=== PATIENT | female | born 1950 | race Caucasian/White ===

== ENCOUNTER → 2017-12-23 11:37 | Outpatient (CLI) | payer MEDICARE, OTHER, SELFPAY ==
[2017-12-23 12:51] LABS: Hemoglobin A1c 7.9 % (4.2-6.3)
[2017-12-23 13:34] LABS: Anion Gap 6 (5-15); BUN 14 mg/dL (7-18); BUN/Creat Ratio 17.3 RATIO (10-20); Calcium,Total 9.7 mg/dL (8.5-10.1); Chloride 104 mmol/L (98-107); Cholesterol 135 mg/dL (200); Creatinine, Serum 0.81 mg/dL (0.55-1.02); EST Glomerular Filtration Rate 75 mL/min (>60); Est Glom Filt Rate - Afr Amer 91 mL/min (>60); Glucose 165 mg/dL (74-106); High Density Lipoprotein 60 mg/dL; Potassium 4.3 mmol/L (3.5-5.1); Sodium Level 137 mmol/L (136-145); Triglycerides 136 mg/dL; Very Low Density Lipoprotein 27 mg/dL (5-40)
== END ==
PROVIDERS: Family Provider Family Medicine; PCP Family Medicine; Visit Provider Family Medicine
DX: E11.9 Type 2 diabetes mellitus without complications (principal); E78.00 Pure hypercholesterolemia, unspecified
CPT/HCPCS: 36415; 80048; 80061; 83036

== ENCOUNTER → 2018-08-09 10:31 | Outpatient (CLI) | payer MEDICARE, OTHER, SELFPAY ==
[2018-08-09 12:04] LABS: Hemoglobin A1c 7.8 % (4.2-6.3)
[2018-08-09 12:07] LABS: Anion Gap 10 (5-15); BUN 16 mg/dL (7-18); BUN/Creat Ratio 21.4 RATIO (10-20); Calcium,Total 9.5 mg/dL (8.5-10.1); Chloride 104 mmol/L (98-107); Cholesterol 143 mg/dL (200); Creatinine, Serum 0.75 mg/dL (0.55-1.02); EST Glomerular Filtration Rate 83 mL/min (>60); Est Glom Filt Rate - Afr Amer 100 mL/min (>60); Glucose 170 mg/dL (74-106); High Density Lipoprotein 61 mg/dL; Potassium 4.3 mmol/L (3.5-5.1); Sodium Level 138 mmol/L (136-145); Triglycerides 169 mg/dL; Very Low Density Lipoprotein 34 mg/dL (5-40)
--- OUTSIDE RECORDS SUMMARY | 2018-10-04 19:04 | XMS RPT_ITS ---
:1950 Author Organization OHIP Care Team Providers Name Role Phone Lashell Shafer Attending Unavailable Shafer, Lashell Referring Unavailable Shafer, Lashell Primary Care Unavailable Lashell Shafer Attending Unavailable Shafer, Lashell Referring Unavailable Shafer, Lashell Primary Care Unavailable PROBLEMS PROBLEMS DATE TYPE CONDITION / CODE ATTENDING STATUS SOURCE Unknown E11.9 - Type 2 diabetes Hollis Lashell Denney 8 mellitus without Community complications / Hospital E11.9(ICD-10) Repository Unknown E78.00 - Pure Shafer Lashell Active [place] 8 hypercholesterolemia, Community unspecified / Hospital E78.00(ICD-10) Repository Unknown 272.0 - Pure Lashell Shafer 8 hypercholesterolemia / Community 272.0(ICD-9) Hospital Repository Unknown 250.00 - Diabetes Lashell Shafer Active [place] 8 mellitus without mention Community of complication, type II Hospital or unspecified type, not Repository stated as uncontrolled / 250.00(ICD-9) PROCEDURES PROCEDURES No Procedure Records FoundRESULTS RESULTS HEMOGLOBIN A1C Collected: 08/09/2018 Status: F Source: [place] 10:39 AM ON LICENSE OF [facility] REPOSITORY Order Comment: Order Date: 05/01/18 Order Info: 4548-4 - A1C TYPE CODE TESTS RESULT OUT OF RANGE REFERENCE UNITS LAB L501.9985 4.2-6.3 % High HGB A1C 7.8 Performed By: #### L501.9985, L500.2500, L500.4100 #### [facility] [address] [place], [place], [id number] BASIC METABOLIC Collected: 08/09/2018 Status: F Source: [place] PROFILE (BMP) 10:39 AM [facility] REPOSITORY Order Comment: Order Date: 05/01/18 Order Info: 0667-1 - BMP Order Info: 74499-1 - LIPID TYPE CODE TESTS RESULT OUT OF RANGE REFERENCE UNITS LAB L501.0100 74-106 mg/dL High GLU 170 Result Comment: Fasting Glucose result greater than or equal to 126 mg/dL suggests DIABETES MELLITUS per A.D.A. criteria. Please note revised GLUCOSE reference range effective 2017. LAB L501.1000 7-18 mg/dL Normal BUN 16 LAB L501.1100 0.55-1.02 mg/dL Normal CREAT,SERUM 0.75 Result Comment: The validity of the calculated GFR AND GFRAA in patients over 70 years has not been determined. Clinical correlation is essential. LAB L501.1110 >60 mL/min Normal EST GFR 83 Result Comment: Non- GFR Calc LAB L501.1115 >60 mL/min Normal EST GFR - AA 100 Result Comment: GFR Calc LAB L501.1300 10-20 RATIO High BUN/CRE 21.4 LAB L501.2200 8.5-10.1 mg/dL CA Normal 9.5 LAB L501.5300 136-145 mmol/L NA Normal 138 LAB L501.5600 3.5-5.1 mmol/L K Normal 4.3 LAB L501.5900 98-107 mmol/L CL Normal 104 LAB L501.6100 21.0-32.0 mmol/L Normal CO2 24.0 LAB L501.6200 5-15 Normal GAP 10 Performed By: #### L501.9985, L500.2500, L500.4100 #### [facility] [address] [place], [place], [address] LIPID PROFILE Collected: 08/09/2018 Status: F Source: [place] 10:39 AM [facility] REPOSITORY Order Comment: Order Date: 05/01/18 Order Info: 0667-1 - BMP Order Info: 03533-0 - LIPID TYPE CODE TESTS RESULT OUT OF RANGE REFERENCE UNITS LAB L501.4900 200 mg/dL Normal CHOL 143 Result Comment: <200 mg/dL Desirable 200-240 mg/dL Borderline >240 mg/dL High Risk LAB L501.5000 mg/dL Normal TRIG 169 Result Comment: The drugs N-Acetylcysteine and Metamizole may falsely depress this assay. Serum Triglycerides Reference Interval Normal <150 mg/dL Borderline high 150 - 199 mg/dL High 200 - 499 mg/dL Very High > or = 500 mg/dL LAB L501.6400 mg/dL Normal HDL 61 Result Comment: The drugs N-Acetylcysteine and Metamizole may falsely depress this assay. Reference Range HDL <40 mg/dL Low HDL Cholesterol HDL >or= 60 mg/dL High HDL Cholesterol LAB L501.6500 0-130 mg/dL Normal LDL 48 LAB L501.6600 5-40 mg/dL Normal VLDL 34 Performed By: #### L501.9985, L500.2500, L500.4100 #### [facility] [address] [facility] [place], [address] HEMOGLOBIN A1C Collected: 12/23/2017 Status: F Source: [place] 11:45 AM [facility] REPOSITORY Order Comment: Order Date: 09/20/17 Order Info: 4548-4 - A1C TYPE CODE TESTS RESULT OUT OF RANGE REFERENCE UNITS LAB L501.9985 4.2-6.3 % High HGB A1C 7.9 Performed By: #### L501.9985, L500.2500, L500.4100 #### [facility] [address] [place], [address] BASIC METABOLIC Collected: 12/23/2017 Status: F Source: [place] PROFILE (BMP) 11:45 AM [facility] REPOSITORY Order Comment: Order Date: 09/20/17 Order Info: 0667-1 - BMP Order Info: 58887-1 - LIPID TYPE CODE TESTS RESULT OUT OF RANGE REFERENCE UNITS LAB L501.0100 74-106 mg/dL High GLU 165 Result Comment: Fasting Glucose result greater than or equal to 126 mg/dL suggests DIABETES MELLITUS per A.D.A. criteria. Please note revised GLUCOSE reference range effective 2017. LAB L501.1000 7-18 mg/dL Normal BUN 14 LAB L501.1100 0.55-1.02 mg/dL Normal CREAT,SERUM 0.81 Result Comment: The validity of the calculated GFR AND GFRAA in patients over 70 years has not been determined. Clinical correlation is essential. LAB L501.1110 >60 mL/min Normal EST GFR 75 Result Comment: Non- GFR Calc LAB L501.1115 >60 mL/min Normal EST GFR - AA 91 Result Comment: GFR Calc LAB L501.1300 10-20 RATIO Normal BUN/CRE 17.3 LAB L501.2200 8.5-10.1 mg/dL CA Normal 9.7 LAB L501.5300 136-145 mmol/L NA Normal 137 LAB L501.5600 3.5-5.1 mmol/L K Normal 4.3 LAB L501.5900 98-107 mmol/L CL Normal 104 LAB L501.6100 21.0-32.0 mmol/L Normal CO2 27.0 LAB L501.6200 5-15 Normal GAP 6 Performed By: #### L501.9985, L500.2500, L500.4100 #### [facility] [address] [place], [place], [address] LIPID PROFILE Collected: 12/23/2017 Status: F Source: [place] 11:45 AM [facility] REPOSITORY Order Comment: Order Date: 09/20/17 Order Info: 0667-1 - BMP Order Info: 97219-5 - LIPID TYPE CODE TESTS RESULT OUT OF RANGE REFERENCE UNITS LAB L501.4900 200 mg/dL Normal CHOL 135 Result Comment: <200 mg/dL Desirable 200-240 mg/dL Borderline >240 mg/dL High Risk LAB L501.5000 mg/dL Normal TRIG 136 Result Comment: The drugs N-Acetylcysteine and Metamizole may falsely depress this assay. Serum Triglycerides Reference Interval Normal <150 mg/dL Borderline high 150 - 199 mg/dL High 200 - 499 mg/dL Very High > or = 500 mg/dL LAB L501.6400 mg/dL Normal HDL 60 Result Comment: The drugs N-Acetylcysteine and Metamizole may falsely depress this assay. Reference Range HDL <40 mg/dL Low HDL Cholesterol HDL >or= 60 mg/dL High HDL Cholesterol LAB L501.6500 0-130 mg/dL Normal LDL 48 LAB L501.6600 5-40 mg/dL Normal VLDL 27 Performed By: #### L501.9985, L500.2500, L500.4100 #### [facility] [address] [place], [address] PROGRESS Observed: 12/05/2017 Status: COMPLETED Source: [place] 10:36 AM [facility] REPOSITORY HNO ID: [id number] Author: Donna Arellano Horser Up Service: (none) Author Type: (none) Type: Progress Notes Filed: 12/05/2017 10:38 AM Note Text: I spoke with Pamela and she states she Loved Dr. crowder as a physician but she decided to change doctors because she was frustrated with the call center and having to wait so long when trying to get in with Dr. Crowder. She wanted you to know that she really liked you a lot and it's nothing against you. PROGRESS Observed: 12/02/2017 Status: COMPLETED Source: [place] 1:[address] [facility] REPOSITORY HNO ID: [id number] Author: Donna Arellano Horser Up Service: (none) Author Type: (none) Type: Progress Notes Filed: 12/05/2017 10:38 AM Note Text: Phone rang several times - no answer - unable to leave a message. PROGRESS Observed: 11/30/2017 Status: COMPLETED Source: [place] 1:[address] [facility] REPOSITORY HNO ID: [id number] Author: Donna Arellano Horser Up Service: (none) Author Type: (none) Type: Progress Notes Filed: 12/05/2017 10:38 AM Note Text: Phone rang several times - unable to leave a message - will try back later. PROGRESS Observed: 11/30/2017 Status: COMPLETED Source: [place] 1:03 PM [facility] REPOSITORY HNO ID: [id number] Author: Donna Arellano Horser Up Service: (none) Author Type: (none) Type: Progress Notes Filed: 12/05/2017 10:38 AM Note Text: [facility] CARE GAP REGISTRY DOCUMENTATION (OUTSIDE TEAMLET) Provider Action/FYI: Please file labs Last labs were done at [facility] in February/2017 PSR Action/FYI: Patient identified by name and date of . Last BP/Labs: Blood Pressure: Last 3 Encounter BP Readings: Date: BP: 03/14/2017 149/84 03/01/2017 124/74 02/25/2017 120/60 Lipids: No results found for: CHOL No results found for: HDL No results found for: LDL No results found for: TG HGB A1C: Lab Results Component Value Date HBA1C 8.4 02/14/2017 TSH: No results found for: TSH) ? Patient has the following care gap registry disease diagnosis:DM ? HTN ? Patient has the following open care gaps:DM - Need Urine Albumin / NOT checked in last 12 months ? Needs dilated eye exam - HM overdue ? Foot exam ? HTN - Last BP NOT under 140/90 ? Last office visit: 03/14/2017 ? Future office visit:Follow-up DM/HTN next available with Provider PCP or AUTOMOBILE REPAIR SERVICE ESTIMATOR with labs prior Health Maintenance Due: TETANUS due on 1963 URINE ALBUMIN CREATININE RATIO due on 1968 - order pending DIABETIC FOOT EXAM due on 1968 HEPATITIS C SCREENING due on 1996 COLORECTAL CANCER SCREENING,SEE MODIFIER due on 2002 MAMMOGRAM due on 09/16/2014 - order pending BONE DENSITY due on 2017 ADULT PREVNAR-13 due on 2017 PNEUMOVAX AGE 65 AND OVER WITH 5YR LOOKBACK(1) due on 2017 INFLUENZA(1) due on 05/13/2017 HBA1C due on 08/16/2017 - order pending DILATED RETINAL EXAM due on 12/22/2017 Donna Arellano [facility] CNPTOUTREACH Observed: 11/30/2017 Status: COMPLETED Source: [place] 12:[address] [facility] REPOSITORY Patient Outreach (INTMWS) PAMELA WALSH ([id number]) 1950 F Date Time Provider Department 11/30/17 DONNA ARELLANO) INTMWS During your visit today, we recorded the following information about you: Donna Arellano [facility] 12/05/2017 10:38 AM Signed [facility] CARE GAP REGISTRY DOCUMENTATION (OUTSIDE TEAMLET) Provider Action/FYI: Please file labs Last labs were done at [facility] in February/2017 PSR Action/FYI: Patient identified by name and date of . Last BP/Labs: Blood Pressure: Last 3 Encounter BP Readings: Date: BP: 03/14/2017 149/84 03/01/2017 124/74 02/25/2017 120/60 Lipids: No results found for: CHOL No results found for: HDL No results found for: LDL No results found for: TG HGB A1C: Lab Results Component Value Date HBA1C 8.4 02/14/2017 TSH: No results found for: TSH) ? Patient has the following care gap registry disease diagnosis:DM ? HTN ? Patient has the following open care gaps:DM - Need Urine Albumin / NOT checked in last 12 months ? Needs dilated eye exam - HM overdue ? Foot exam ? HTN - Last BP NOT under 140/90 ? Last office visit: 03/14/2017 ? Future office visit:Follow-up DM/HTN next available with Provider PCP or AUTOMOBILE REPAIR SERVICE ESTIMATOR with labs prior Health Maintenance Due: TETANUS due on 1963 URINE ALBUMIN CREATININE RATIO due on 1968 - order pending DIABETIC FOOT EXAM due on 1968 HEPATITIS C SCREENING due on 1996 COLORECTAL CANCER SCREENING,SEE MODIFIER due on 2002 MAMMOGRAM due on 09/16/2014 - order pending BONE DENSITY due on 2017 ADULT PREVNAR-13 due on 2017 PNEUMOVAX AGE 65 AND OVER WITH 5YR LOOKBACK(1) due on 2017 INFLUENZA(1) due on 05/13/2017 HBA1C due on 08/16/2017 - order pending DILATED RETINAL EXAM due on 12/22/2017 Donna Arellano [facility] Donna Arellano [facility] 12/05/2017 10:38 AM Signed Phone rang several times - unable to leave a message - will try back later. Donna Arellano [facility] 12/05/2017 10:38 AM Signed Phone rang several times - no answer - unable to leave a message. Donna Arellano [facility] 12/05/2017 10:38 AM Signed I spoke with Pamela and she states she Loved Dr. crowder as a physician but she decided to change doctors because she was frustrated with the call center and having to wait so long when trying to get in with Dr. Crowder. She wanted you to know that she really liked you a lot and it's nothing against you. Allergies As of Date: 11/30/2017 Noted Allergy Reaction CAFFEINE 04/19/2016 16 - Unknown Comments: Very sensitive CODEINE 04/19/2016 5 - Intolerance Comments: [place] weird PERCOCET (OXYCODONE-ACETAMINOPHEN)04/19/2016 14 - Other: See Comments Comments: [place] weird ZITHROMAX (AZITHROMYCIN) 04/19/2016 12 - Shortness of Breath Date Reviewed: 03/01/2017 Reviewed by: Frannie Schilling Ma - Fully Assessed Reason for Visit: PHMA/Care Gap Outreach [2411] Primary Visit Diagnosis:Screening mammogram, encounter for [Z12.31] Other Visit Diagnoses:Type 2 diabetes mellitus without complication, without long-term current use of insulin (HCC) [E11.9] Mixed hyperlipidemia [E78.2] Essential hypertension [I10] Order(s):MARINE SCREENING [[id number]] Order #: [id number] FUTURE HGB A1C [ICAWD5U] Order #: [id number] FUTURE ALBUMIN/CREAT RATIO RND UR [SQUACR] Order #: [id number] FUTURE BASIC METABOLIC PNL [SQBMP] Order #: [id number] FUTURE LIPID PANEL BASIC [SQLIPB] Order #: [id number] FUTURE Prescriptions as of 11/30/2017 Sig: GLIPIZIDE ER 10 MG TABLET, EX* Take 1 tablet by mouth twice * METFORMIN 1,000 MG TABLET Take 1 tablet by mouth twice * ATORVASTATIN 40 MG TABLET Take 1 tablet by mouth daily * LISINOPRIL 2.5 MG TABLET Take 1 tablet by mouth daily * CINNAMON BARK 500 MG CAPSULE Take by mouth once daily. COENZYME Q10 10 MG CAPSULE Take by mouth once daily. VALERIAN ORAL Take 150 mg by mouth. Prn for* VITAMIN B COMPLEX ORAL Take by mouth once daily. ASCORBIC ACID (VITAMIN C) 500* Take 500 mg by mouth once terry* BIOTIN 1 MG TABLET Take 1 tablet by mouth. COMPOUNDED PRESCRIPTION Lab draw: HgA1C, lipids, CMP* BUSPIRONE 15 MG TABLET Take 15 mg by mouth twice terry* BUPROPION XL 300 MG 24 HR TAB Take 300 mg by mouth once terry* LIOTHYRONINE 5 MCG TABLET Take 5 mcg by mouth once latanya* XANAX ORAL Take by mouth. PRN Problem List As Of Date 11/30/2017 Noted Resolved Type 2 diabetes mellitus without complication, *INVALID FOR* Mixed hyperlipidemia [E78.2] INVALID FOR* Depression [F32.9] Panic disorder [F41.0] Non morbid obesity due to excess calories [E66.*INVALID FOR* Essential hypertension [I10] INVALID FOR* Encounter Status:Closed by DONNA ARELLANO CMA on 12/05/17 ALLERGIES ALLERGIES DATE TYPE / CODE NAME / CODE REACTION SEVERITY SOURCE 05/01/2017 Drug pentazocine Nausea Unknown [place] Allergy/416 lactate/[id number] [facility] [id number]([facility] ([facility] ED CT) Repository 05/01/2017 Drug codeine/[id number] Nausea Unknown [place] Allergy/416 (RXNORM) [facility] [id number]([facility] CT) Repository 05/01/2017 Drug azithromycin/F0060 Shortness of Unknown [place] Allergy/416 27282(RXNORM) breath [facility] [id number]([facility] ED CT) Repository ENCOUNTERS ENCOUNTERS ADMIT/DISCHARGE ACCOUNT ADMITTING ENCOUNTER LOCATION SOURCE NUMBER CLASS 08/09/2018 [id number] Ambulatory [place] [facility] ing:LAB Repository 12/23/2017 [id number] Ambulatory [place] [facility] ing:LAB Repository PAYERS PAYERS ENCOUNTER GUARANTOR PAYER SUBSCRIBER SOURCE 08/09/2018 Pamela Walsh133 Primary Pamela GoshenDOB: [place] Mallika Rooney, Insurance:MEDICARE [id number] [id number]: PART A [facility] Number: Repository HP) [id number] Date:2018-08-09 08/09/2018 Secondary Pamelajoseph BrowninghenDOB: [place] Insurance:MEDICAL [id number]: Repository [id number] Date:[id number] [address]JJ: 08/09/2018 Tertiary NOT GIVENUNK [place] Insurance:SELF PAY [facility] Number: Effective Repository Date:2018-08-09 12/23/2017 Pamela Walsh133 Primary Pamela JillianDOB: [place] Mallika Rooney, Insurance:MEDICARE [id number] [id number]: PART A [facility] Number: Repository [place] [id number] Date:2017-12-23 12/23/2017 Secondary Pamela KennyB: [place] Insurance:MEDICAL [id number] Number: Repository [id number] Date:[id number], [place] [address]IM: 12/23/2017 Tertiary NOT GIVENUNK [place] Insurance:SELF PAY [facility] Number: Effective Repository Date:2017-12-23
== END ==
PROVIDERS: Family Provider Family Medicine; PCP Family Medicine; Referring Provider Family Medicine; Visit Provider Family Medicine
DX: E11.9 Type 2 diabetes mellitus without complications (principal); E78.00 Pure hypercholesterolemia, unspecified
CPT/HCPCS: 36415; 80048; 80061; 83036

== ENCOUNTER → 2018-11-22 17:52 | Outpatient (CLI) | payer MEDICARE, OTHER, SELFPAY ==
[2017-05-01 13:50] VITALS: BMI 35.5
== END ==
PROVIDERS: Family Provider Family Medicine; PCP Family Medicine; Referring Provider Nurse Practitioner Family; Visit Provider Nurse Practitioner Family
DX: R30.0 Dysuria (principal)
CPT/HCPCS: 87086; 87088; 87186

== ENCOUNTER → 2019-03-01 | Outpatient (CLI) | payer MEDICARE, OTHER, SELFPAY ==
[2019-03-01 11:30] LABS: Hemoglobin A1c 7.5 % (4.2-6.3)
[2019-03-01 11:51] LABS: Anion Gap 5 (5-15); BUN 12 mg/dL (7-18); BUN/Creat Ratio 17.9 RATIO (10-20); Calcium,Total 9.7 mg/dL (8.5-10.1); Chloride 106 mmol/L (98-107); Cholesterol 145 mg/dL (200); Creatinine, Serum 0.67 mg/dL (0.55-1.02); EST Glomerular Filtration Rate 93 mL/min (>60); Est Glom Filt Rate - Afr Amer 113 mL/min (>60); Free T3 2.3 pg/mL (2.18-3.98); Glucose 165 mg/dL (74-106); High Density Lipoprotein 63 mg/dL; Potassium 4.2 mmol/L (3.5-5.1); Sodium Level 137 mmol/L (136-145); T4 Total, Thyroxin 8.6 ug/dL (4.8-13.9); Thyroid Stim Hormone (TSH) 1.03 uIU/mL (0.358-3.74); Triglycerides 179 mg/dL; Very Low Density Lipoprotein 36 mg/dL (5-40)
== END | disposition home or self-care (01) ==
LOC: LAB 10:33
PROVIDERS: Family Provider Family Medicine; PCP Family Medicine; Referring Provider Family Medicine; Visit Provider Family Medicine
DX: E03.9 Hypothyroidism, unspecified (principal); E11.9 Type 2 diabetes mellitus without complications; E78.00 Pure hypercholesterolemia, unspecified
CPT/HCPCS: 36415; 80048; 80061; 83036; 84436; 84443; 84481

== ENCOUNTER → 2019-11-16 | Outpatient (CLI) | payer MEDICARE, OTHER, SELFPAY ==
[2017-05-01 13:50] VITALS: BMI 35.5
[2019-11-16 14:06] LABS: Anion Gap 4 (5-15); BUN 13 mg/dL (7-18); BUN/Creat Ratio 17.7 RATIO (10-20); Calcium,Total 9.8 mg/dL (8.5-10.1); Chloride 109 mmol/L (98-107); Cholesterol 141 mg/dL (200); Creatinine, Serum 0.73 mg/dL (0.55-1.02); EST Glomerular Filtration Rate 84 mL/min (>60); Est Glom Filt Rate - Afr Amer 102 mL/min (>60); Glucose 183 mg/dL (74-106); High Density Lipoprotein 61 mg/dL; Potassium 4.5 mmol/L (3.5-5.1); Sodium Level 139 mmol/L (136-145); Triglycerides 152 mg/dL; Very Low Density Lipoprotein 30 mg/dL (5-40)
[2019-11-16 14:24] LABS: Hemoglobin A1c 7.8 % (4.2-6.3)
== END | disposition home or self-care (01) ==
LOC: LAB 12:29
PROVIDERS: PCP Family Medicine; Referring Provider Family Medicine; Visit Provider Family Medicine
DX: E11.9 Type 2 diabetes mellitus without complications (principal); E78.00 Pure hypercholesterolemia, unspecified
CPT/HCPCS: 36415; 80048; 80061; 83036

== ENCOUNTER → 2020-08-25 11:01 | Outpatient (CLI) | payer MEDICARE, OTHER, SELFPAY ==
[2017-05-01 13:50] VITALS: BMI 35.5
[2020-08-25 12:02] LABS: ALB/GLOB Ratio 1.1 RATIO (0.9-2.4); AST(SGOT) 15 U/L (15-37); Alanine Aminotransfer ALT/SGPT 23 U/L (13-56); Albumin, Serum 3.5 g/dL (3.2-5.0); Alkaline Phosphatase 101 U/L (45-117); Anion Gap 6 (5-15); BUN 13 mg/dL (7-18); Calcium,Total 9.7 mg/dL (8.5-10.1); Chloride 104 mmol/L (98-107); Cholesterol 144 mg/dL (200); Creatinine, Serum 0.72 mg/dL (0.55-1.02); EST Glomerular Filtration Rate 85 mL/min (>60); Est Glom Filt Rate - Afr Amer 103 mL/min (>60); Globulin 3.2 g/dL (2.2-4.2); Glucose 171 mg/dL (74-106); High Density Lipoprotein 69 mg/dL; Potassium 4.2 mmol/L (3.5-5.1); Protein, Total 6.7 g/dL (6.4-8.2); Sodium Level 136 mmol/L (136-145); Triglycerides 175 mg/dL; Very Low Density Lipoprotein 35 mg/dL (5-40)
[2020-08-25 12:06] LABS: Hemoglobin A1c 7.5 % (3.8-5.6)
== END ==
PROVIDERS: PCP Family Medicine; Referring Provider Family Medicine; Visit Provider Family Medicine
DX: E11.9 Type 2 diabetes mellitus without complications (principal)
CPT/HCPCS: 36415; 80053; 80061; 83036

== ENCOUNTER 2020-11-18 12:01 | Outpatient (RCR) | payer MEDICARE, SELFPAY ==
[2017-05-01 13:50] VITALS: BMI 35.5
[2020-11-18] MEDS: COVID-19 VACC, MRNA(PFIZER)/PF 30 MCG/0.3 ML SYRINGE IM (09:12)
[2020-12-09] MEDS: COVID-19 VACC, MRNA(PFIZER)/PF 30 MCG/0.3 ML SYRINGE IM (09:00)
== END 2021-02-17 23:59 ==
LOC: IMMUN 12:01
PROVIDERS: PCP Family Medicine; Referring Provider Family Medicine; Visit Provider Family Medicine
DX: Z23 Encounter for immunization (principal)
CPT/HCPCS: 0001A; 0002A; 91300

== ENCOUNTER → 2021-02-27 09:49 | Outpatient (CLI) | payer MEDICARE, OTHER, SELFPAY ==
[2017-05-01 13:50] VITALS: BMI 35.5
[2021-02-27 11:35] LABS: Hemoglobin A1c 7.6 % (3.8-5.6)
[2021-02-27 12:13] LABS: ALB/GLOB Ratio 1.1 RATIO (0.9-2.4); AST(SGOT) 14 U/L (15-37); Alanine Aminotransfer ALT/SGPT 23 U/L (13-56); Albumin, Serum 3.7 g/dL (3.2-5.0); Alkaline Phosphatase 108 U/L (45-117); Anion Gap 9 (5-15); BUN 15 mg/dL (7-18); BUN/Creat Ratio 19.4 RATIO (10-20); Calcium,Total 9.7 mg/dL (8.5-10.1); Chloride 102 mmol/L (98-107); Cholesterol 151 mg/dL (200); Creatinine, Serum 0.77 mg/dL (0.55-1.02); EST Glomerular Filtration Rate 79 mL/min (>60); Est Glom Filt Rate - Afr Amer 95 mL/min (>60); Globulin 3.4 g/dL (2.2-4.2); Glucose 205 mg/dL (74-106); High Density Lipoprotein 65 mg/dL; Potassium 4.6 mmol/L (3.5-5.1); Protein, Total 7.1 g/dL (6.4-8.2); Sodium Level 137 mmol/L (136-145); Thyroid Stim Hormone (TSH) 1.14 uIU/mL (0.358-3.74); Triglycerides 143 mg/dL; Very Low Density Lipoprotein 29 mg/dL (5-40)
== END ==
PROVIDERS: PCP Family Medicine; Referring Provider Family Medicine; Visit Provider Family Medicine
DX: E11.65 Type 2 diabetes mellitus with hyperglycemia (principal)
CPT/HCPCS: 36415; 80053; 80061; 83036; 84443

== ENCOUNTER 2021-03-01 10:56 | Emergency (ER) | payer MEDICARE, OTHER, SELFPAY ==
[2021-03-01 10:58] VITALS: BP 166/84; PULSE 120; RESP 17; TEMP 36.1; O2SAT 96; BMI 35.8
--- NOTE | 2021-03-01 11:06 | EX.ED.GENINJ ---
HPI History of Present Illness Chief Complaint: Laceration Informant: patient Narrative Narrative: 70-year-old female using X-Acto knife when she stained a laceration to the dorsum of the right index finger over the DIP joint. She denies any loss of function or sensation. Bleeding controlled with pressure. She is left-handed. Tetanus Immunization: >10 years [facility] Medical History Diabetes mellitus Hypertension Hypothyroidism Home Medications alprazolam [Xanax] 5 mg PO DAILY PRN PRN 05/01/17 [History Last Taken Unknown] atorvastatin 40 mg PO QHS 05/01/17 [History Last Taken Unknown] bupropion HCl 300 mg PO DAILY 05/01/17 [History Last Taken Unknown] buspirone 22.5 mg PO BID 05/01/17 [History Last Taken Unknown] glipizide 10 mg PO BIDAC 05/01/17 [History Last Taken Unknown] liothyronine 5 mcg PO DAILY 05/01/17 [History Last Taken Unknown] lisinopril 2.5 mg PO QHS 05/01/17 [History Last Taken Unknown] metformin 1,000 mg PO BIDCM 05/01/17 [History Last Taken Unknown] Allergy/AdvReac Type Severity Reaction Status Date / Time azithromycin [From Zithromax] Allergy Shortness Verified 03/01/21 10:57 of breath codeine AdvReac Nausea Verified 03/01/21 10:57 pentazocine lactate AdvReac Nausea Verified 03/01/21 10:57 [From Ajay] Surgical History (Updated 03/01/21 @ 11:[address] Neno Burris DO) H/O gastric bypass History of tonsillectomy History of wisdom tooth extraction Social History (Updated 03/01/21 @ 11:[address] Neno Burris DO) Smoking Status: Never smoker substance use type: does not use ROS ROS ED Constitutional Constitutional ED: Denies chills or weight loss Eyes Eyes: Denies change in vision or diplopia ENT ENT ED: Denies ear pain, rhinorrhea or sore throat Cardiovascular Cardiovascular: Denies chest pain, orthopnea, palpitations or racing heartbeat Respiratory/Chest Respiratory/Chest: Denies cough, dyspnea or orthopnea Gastrointestinal Gastrointestinal: Denies abdominal pain, diarrhea, nausea or vomiting Genitourinary Genitourinary ED: Denies dysuria, hematuria or urinary frequency Musculoskeletal Musculoskeletal: Denies arthralgias or myalgias Integumentary Reports other Details: Laceration ; Denies abscess or rash Neurologic Neurologic: Denies headache(s) or weakness Psychiatric Psychiatric: Denies anxiety, depression, suicidal ideation or suicidal thoughts Endocrine Endocrinology: Denies polydipsia, polyphagia or polyuria Allergic/Immunologic Allergic/Immunologic ED: Denies mouth swelling, tongue swelling or urticaria EXAM Physical Exam Const Vital Signs: 03/01/21 10:58 Temperature 96.9 F L Temperature Source Temporal Pulse Rate 120 H Respiratory Rate 17 Blood Pressure 166/84 H Blood Pressure Mean 111 Pulse Ox 96 Oxygen Delivery Method Room Air Positive well nourished and well developed General Appearance ED: well developed HEENT Reports normocephalic, head/scalp atraumatic and moist mucous membranes Eyes PERRL and EOMs intact bilaterally Neck no lymphadenopathy, supple and no JVD Resp normal respiratory effort and clear to auscultation bilaterally Cardio regular rate, regular rhythm and no murmurs GI normal to inspection, nondistended, normoactive bowel sounds and non-tender Palpation: soft Back/Spine no CVA tenderness and normal ROM Extremity Extremity Narrative: There is a 1 cm linear laceration over the dorsum of the right index finger DIP joint. Neurovascular intact. Normal tendon function. General Extremety ED: Negative for edema General Extremity: Negative for edema Neuro oriented x3 and CN's II-XII intact bilaterally Sensorium / Orientation: alert Motor Exam: strength 5/5 throughout Psych mental status grossly normal Mood & Affect: Negative for depressed or tearful Skin no rashes or lesions noted and skin turgor normal MDM MDM MDM Narrative Medical decision making narrative: Wound was locally anesthetized using 1% lidocaine. Was washed with Shur-Clens and explored. It was closed using a total of 3 simple erupted 5-0 Ethilon sutures. Wound was dressed. Wound care discussed with patient. Follow-up in 10 days for suture removal Discharge Plan Triage Chief Complaint: Laceration ED Provider: Neno Burris Dx/Rx/DC Orders Clinical Impression: Finger laceration Instructions: ED Laceration, Hand: All Closures Prescriptions: No Action atorvastatin 40 MG tablet 40 mg PO QHS RF: 0 buspirone 5 MG tablet 22.5 mg PO BID RF: 0 glipizide 10 MG tablet 10 mg PO BIDAC RF: 0 liothyronine 5 MCG tablet 5 mcg PO DAILY RF: 0 metformin 1,000 MG tablet 1,000 mg PO BIDCM RF: 0 alprazolam [Xanax] 2 MG tablet 5 mg PO DAILY PRN PRN (Reason: Anxiety) RF: 0 lisinopril 2.5 MG tablet 2.5 mg PO QHS RF: 0 bupropion HCl 300 MG Tablet.Xl 300 mg PO DAILY RF: 0 Primary Care Provider: Hugo Olivier Referrals: Hugo Olivier MD [Primary Care Provider] - 10 Day for suture removal Disposition Disposition: Home, self care
[2021-03-01] MEDS: Diphth,Pertuss(Acell),Tet Vac 0.5 ML Vial IM (11:19)
[2021-03-01] MEDS: Lidocaine 1% (20 ml mdv) 20 ML Vial INFILT (11:19)
[2021-03-01 11:51] VITALS: PULSE 98; RESP 17; O2SAT 98
== END 2021-03-01 11:52 | disposition home or self-care (01) ==
LOC: ED 11:34
PROVIDERS: Emergency Provider Emergency Medicine; PCP Family Medicine
DX: S61.210A Laceration without foreign body of right index finger without damage to nail, initial encounter (principal); W26.0XXA Contact with knife, initial encounter
CPT/HCPCS: 12001; 90471; 90715; 99283

== ENCOUNTER 2021-03-28 12:14 | Emergency (ER) | payer MEDICARE, OTHER, SELFPAY ==
[2021-03-28 12:16] VITALS: BP 163/94; PULSE 92; RESP 16; TEMP 35.7; BMI 35.7
--- NOTE | 2021-03-28 12:38 | EKG12_ITS ---
Test Reason : CP Blood Pressure : / mmHG Vent. Rate : 068 BPM Atrial Rate : 068 BPM P-R Int : 142 ms QRS Dur : 078 ms QT Int : 372 ms P-R-T Axes : 052 023 052 degrees QTc Int : 395 ms Normal sinus rhythm Normal ECG Confirmed by MILAGRO ZURITA, VI ([id number]), greeting card editor FLIP ROCA ([id number]) on 03/30/2021 2:22:12 PM Referred By: TL Confirmed By:VI HMUPHREY MD
[2021-03-28 12:57] VITALS: BP 155/81; PULSE 83; RESP 16; O2SAT 99
[2021-03-28 13:07] LABS: Absolute Lymphocyte Count 2.72 X10^3/uL (0.83-4.51); Basophil# 0.06 X10^3/uL; Basophil% 0.8 % (0-1); Eosinophil# 0.23 X10^3/uL; Eosinophils% 2.9 % (0-5); Hematocrit 45.1 % (37-47); Hemoglobin 15.1 g/dL (12.0-15.0); Lymphocyte # 2.72 X10^3/ul (0.83-4.51); Lymphocyte % 34.7 % (19-41); Mean Corp Hgb Conc 33.5 g/dL (32-36); Mean Corpuscular Hgb 28.5 pg (27.0-32.0); Mean Corpuscular Volume 85.3 fL (81-99); Mean Platelet Vol. 11.2 fl (6.2-12.0); Monocyte# 0.76 X10^3/uL; Monocyte% 9.7 % (0-10); NRBC Flagged by Analyzer 0 % (0-5); Neutrophil # 4.04 X10^3/uL (2.7-7.7); Neutrophil % 51.6 % (47-70); Platelet Count 338 K/mm3 (150-450); RBC Distribution Width CV 13.1 % (11.6-14.6); RBC Distribution Width SD 40.3 fl (35.1-43.9); Red Blood Count 5.29 M/mm3 (4.2-5.4); White Blood Count 7.8 K/mm3 (4.4-11.0)
--- NOTE | 2021-03-28 13:13 | RAD_ITS ---
HISTORY: chest pain EXAMINATION/TECHNIQUE: XR Chest 1 View: Portable upright AP chest x-ray COMPARISON: None FINDINGS: LINES/DEVICES: None. LUNGS: No consolidation, edema or effusion. No pneumothorax. MEDIASTINUM AND CARDIOVASCULAR STRUCTURES: Cardiac silhouette not enlarged. Central airways and mediastinal contour are unremarkable. BONES AND SOFT TISSUES: No acute bony abnormalities. RAD/Chest 1 View (Portable) IMPRESSION: No radiographic evidence of acute cardiopulmonary disease. at 1426 Reported and signed by: Ritesh Anguiano MD Electronically Signed: Ritesh Anguiano MD at 14:25 EDT Tel , Service support ,
[2021-03-28 13:18] LABS: Anion Gap 9 (5-15); BUN 13 mg/dL (7-18); BUN/Creat Ratio 18.4 RATIO (10-20); Calcium,Total 9.6 mg/dL (8.5-10.1); Chloride 103 mmol/L (98-107); Creatinine, Serum 0.71 mg/dL (0.55-1.02); EST Glomerular Filtration Rate 87 mL/min (>60); Est Glom Filt Rate - Afr Amer 106 mL/min (>60); Estimated Creatinine Clearance 47.78 ml/min; Glucose 131 mg/dL (74-106); Potassium 4.4 mmol/L (3.5-5.1); Sodium Level 138 mmol/L (136-145); Troponin-I HS 4.2 pg/mL (3.0-53.7)
[2021-03-28 15:19] LABS: Troponin-I HS 3.3 pg/mL (3.0-53.7)
--- NOTE | 2021-03-28 15:33 | EDS_ITS ---
HPI History of Present Illness Chief Complaint: Other, Pain/Inj Informant: patient Narrative Narrative: Presents with intermittent twinges left upper chest anterior shoulder for the past couple days. States symptoms are last a few seconds would go away today had multiple episodes. Denies cough dyspnea. Denies pain with arm movement. Denies previous similar symptoms. Stress test and heart cath years ago with no interventions. History of diabetes, hypercholesterolemia. Reports on lisinopril for renal protection. Denies tobacco history. Denies any cardiac history. Reports due to symptoms concerns of heart therefore came to get evaluated. [facility] Medical History Anxiety Depression Diabetes mellitus Hypertension Hypothyroidism Home Medications atorvastatin 40 mg PO QHS 05/01/17 [History Last Taken Unknown] bupropion HCl 300 mg PO DAILY 05/01/17 [History Last Taken Unknown] buspirone 30 mg PO BID 05/01/17 [History Last Taken Unknown] glipizide 10 mg PO BIDAC 05/01/17 [History Last Taken Unknown] liothyronine 5 mcg PO DAILY 05/01/17 [History Last Taken Unknown] lisinopril 2.5 mg PO QHS 05/01/17 [History Last Taken Unknown] metformin 1,000 mg PO BIDCM 05/01/17 [History Last Taken Unknown] ascorbic acid (vitamin C) [Vitamin C] 500 mg PO DAILY 03/28/21 [History Last Taken Unknown] cholecalciferol (vitamin D3) [Vitamin D3] 25 mcg PO DAILY 03/28/21 [History Last Taken Unknown] cinnamon bark [Cinnamon] 500 mg PO DAILY 03/28/21 [History Last Taken Unknown] coenzyme Q10 [Co Q-10] 50 mg PO DAILY 03/28/21 [History Last Taken Unknown] fluoxetine 40 mg PO DAILY 03/28/21 [History Last Taken Unknown] Allergy/AdvReac Type Severity Reaction Status Date / Time azithromycin [From Zithromax] Allergy Shortness Verified 03/28/21 12:18 of breath codeine AdvReac Nausea Verified 03/28/21 12:18 pentazocine lactate AdvReac Nausea Verified 03/28/21 12:18 [From Ajay] Surgical History H/O gastric bypass History of tonsillectomy History of wisdom tooth extraction Social History Smoking Status: Former smoker substance use type: does not use ROS ROS ED Constitutional Constitutional ED: Denies chills, fever(s) or sweats Eyes Eyes: Denies change in vision ENT ENT ED: Denies dysphagia or sore throat Cardiovascular Cardiovascular: Reports chest pain; Denies leg edema, palpitations or racing heartbeat Respiratory/Chest Respiratory/Chest: Denies cough, dyspnea or dyspnea on exertion Gastrointestinal Gastrointestinal: Denies abdominal pain, diarrhea, nausea or vomiting Genitourinary Genitourinary ED: Denies dysuria, hematuria or urinary frequency Musculoskeletal Musculoskeletal: Denies back pain, extremity pain or neck pain Integumentary Denies rash or wounds Neurologic Neurologic: Denies headache(s), paresthesias or weakness EXAM Physical Exam Const Vital Signs: 03/28/21 12:16 03/28/21 12:51 03/28/21 12:57 Temperature 96.2 F L Temperature Source Temporal Pulse Rate 92 83 Respiratory Rate 16 16 Respiratory Effort Respiratory Pattern Blood Pressure 163/94 H 155/81 H Blood Pressure Mean 117 105 Pulse Ox 99 Oxygen Delivery Method Room Air Room Air 03/28/21 13:06 Temperature Temperature Source Pulse Rate Respiratory Rate Respiratory Effort Normal Non-Labored Respiratory Pattern Normal Blood Pressure Blood Pressure Mean Pulse Ox Oxygen Delivery Method Positive well nourished and well developed General Appearance ED: well developed and NAD HEENT Reports moist mucous membranes normocephalic and atraumatic Eyes PERRL, EOMs intact bilaterally and conjunctivae normal General Eye ED: Yes normal appearance of both eyes Neck no lymphadenopathy and supple General: Negative for tenderness Chest Wall Chest: Negative for tenderness Resp normal respiratory effort and normal air movement Effort and Inspection: symmetric chest movement; Negative for respiratory distress Cardio regular rate, regular rhythm and no murmurs Peripheral Pulses: pulses 2+ throughout GI normal to inspection, nondistended, normoactive bowel sounds and non-tender Palpation: Negative for guarding or rebound tenderness present Back/Spine no CVA tenderness and no thoracic nor lumbar tenderness Extremity normal to inspection General Extremety ED: Negative for edema or tenderness General Extremity: Negative for edema Neuro oriented x3 and no sensory deficits noted Sensorium / Orientation: awake and alert Skin no rashes or lesions noted and no wounds MDM MDM MDM Narrative Medical decision making narrative: Patient asymptomatic during my evaluation. EKG was normal. Cardiac work-up with 2 high sensitive troponins were negative. She had intermittent short acting twinges in the ED. Her chest x-ray was negative. Patient's heart score is a 4. However with negative work-up with high sensitive troponins, less likely cardiac in nature. Discussed with patient follow-up with her PCP for further testing as an outpatient. Strict return precautions. All questions were answered. Lab Data Attestation: I reviewed the patient's lab results. Labs: Laboratory Results - last 24 hr 03/28/21 03/28/21 03/28/21 12:45 12:45 14:45 WBC 7.8 RBC 5.29 Hgb 15.1 H Hct 45.1 MCV 85.3 MCH 28.5 MCHC 33.5 RDW Std Deviation 40.3 RDW Coeff of Calli 13.1 Plt Count 338 MPV 11.2 Immature Gran % (Auto) 0.300 Neut % (Auto) 51.6 Lymph % (Auto) 34.7 Kershaw % (Auto) 9.7 Eos % (Auto) 2.9 Baso % (Auto) 0.8 Absolute Neuts (auto) 4.0 Absolute Lymphs (auto) 2.72 Nucleated RBC % 0 Sodium 138 Potassium 4.4 Chloride 103 Carbon Dioxide 26.0 Anion Gap 9 BUN 13 Creatinine 0.71 Estim Creat Clear Calc 47.78 Est GFR (MDRD) Af Amer 106 Est GFR (MDRD) Non-Af 87 BUN/Creatinine Ratio 18.4 Glucose 131 H Calcium 9.6 Troponin I High Sens 4.2 3.3 Radiography Chest X-Ray - ED: 1 View, Read by ED Physician and Read by Radiologist Diagnostic Testing: Radiology Impression Chest X-Ray 03/28/21 13:13 IMPRESSION: No radiographic evidence of acute cardiopulmonary disease. at 1426 Reported and signed by: Ritesh Anguiano MD Electronically Signed: Ritesh Anguiano MD at 14:25 EDT Tel , Service support , EKG Initial EKG: Attestation: I personally reviewed and interpreted this EKG as follows: Comments: Sinus rate of 68, no ST or T wave changes. Discharge Plan Triage Chief Complaint: Other, Pain/Inj ED Provider: Robert Tanner Dx/Rx/DC Orders Clinical Impression: Atypical chest pain Instructions: ED Chest Pain, Uncertain Cause Prescriptions: No Action atorvastatin 40 MG tablet 40 mg PO QHS RF: 0 buspirone 5 MG tablet 30 mg PO BID RF: 0 glipizide 10 MG tablet 10 mg PO BIDAC RF: 0 liothyronine 5 MCG tablet 5 mcg PO DAILY RF: 0 metformin 1,000 MG tablet 1,000 mg PO BIDCM RF: 0 lisinopril 2.5 MG tablet 2.5 mg PO QHS RF: 0 bupropion HCl 300 MG tablet extended release 24 hr 300 mg PO DAILY RF: 0 fluoxetine 40 mg Capsule 40 mg PO DAILY RF: 0 coenzyme Q10 [Co Q-10] 50 mg Capsule 50 mg PO DAILY RF: 0 ascorbic acid (vitamin C) [Vitamin C] 500 mg Tablet 500 mg PO DAILY RF: 0 cinnamon bark [Cinnamon] 500 mg Capsule 500 mg PO DAILY RF: 0 cholecalciferol (vitamin D3) [Vitamin D3] 25 mcg (1,000 unit) Tablet,Chewable 25 mcg PO DAILY RF: 0 Primary Care Provider: Hugo Olivier Referrals: Hugo Olivier MD [Primary Care Provider] - 3-5 Days Disposition Disposition: Home, Self Care
[2021-03-28 15:53] VITALS: BP 140/87; PULSE 88; RESP 20; O2SAT 96
== END 2021-03-28 15:55 | disposition home or self-care (01) ==
PROVIDERS: Emergency Provider Emergency Medicine; PCP Family Medicine
DX: R07.89 Other chest pain (principal); E11.9 Type 2 diabetes mellitus without complications; E78.00 Pure hypercholesterolemia, unspecified; F41.9 Anxiety disorder, unspecified; F32.9 Major depressive disorder, single episode, unspecified; E03.9 Hypothyroidism, unspecified; I10 Essential (primary) hypertension; Z79.84 Long term (current) use of oral hypoglycemic drugs; Z79.899 Other long term (current) drug therapy; Z87.891 Personal history of nicotine dependence
CPT/HCPCS: 71045; 80048; 84484; 85025; 93005; 99284; A4216

== ENCOUNTER → 2021-04-09 12:34 | Outpatient (CLI) | payer MEDICARE, OTHER, SELFPAY ==
[2021-03-28 12:16] VITALS: BMI 35.7
--- NOTE | 2021-04-09 12:37 | BI_ITS ---
MAMMOGRAPHY - BILATERAL SCREENING REASON FOR EXAM: Female, 71 years old. Routine annual screening examination. PERTINENT HISTORY: Non-contributory. TECHNIQUE: Digital bilateral breast santos (3D mammographic acquisition) in the CC and MLO projections. 2-D mediolateral oblique (MLO) and craniocaudad (CC) views of both breasts were obtained. CAD: Full Field Digital Mammography with Computer Added Detection was performed. COMPARISON: Comparison is made with prior examination dated 01/23/2015 and 10/01/2010. FINDINGS: Breast Composition: There are scattered areas of fibroglandular density. There are no dominant masses or suspicious calcifications. Stable small benign appearing bilateral axillary lymph nodes. Stable intramammary lymph node in the upper outer quadrant of the left breast. No other significant abnormalities are identified. There has been no significant change since the prior study. BI/SCRN MAMM (CAD)W/SANTOS BILAT IMPRESSION: Stable bilateral screening mammogram. Yearly follow-up mammogram recommended. (A) ASSESSMENT CATEGORY: BIRADS Category 2: Benign. A letter regarding these results will be sent to the patient by the facility within 30 days. Approximately 10% of breast cancers are not detected by mammography. A normal mammogram should not delay biopsy of a clinically suspicious abnormality. [id number] Electronically Signed: Favian Hickman MD at 13:23 EDT , Service support ,
== END ==
PROVIDERS: PCP Family Medicine; Referring Provider Family Medicine; Visit Provider Family Medicine
DX: Z12.31 Encounter for screening mammogram for malignant neoplasm of breast (principal)
CPT/HCPCS: 77063; 77067

== ENCOUNTER → 2021-08-20 09:24 | Outpatient (CLI) | payer MEDICARE, OTHER, SELFPAY ==
[2021-08-20 10:40] LABS: Microalbumin,Random Urine 14.5 mg/L (NO RANGE EST.); Microalbumin:Creatinine Ratio 11.1 mg/g CRE (<30 mg/g CRE)
[2021-08-20 10:56] LABS: Hemoglobin A1c 7.9 % (3.8-5.6)
[2021-08-20 11:02] LABS: AST(SGOT) 11 U/L (15-37); Alanine Aminotransfer ALT/SGPT 24 U/L (13-56); Albumin, Serum 3.5 g/dL (3.2-5.0); Alkaline Phosphatase 94 U/L (45-117); Anion Gap 9 (5-15); BUN 12 mg/dL (7-18); BUN/Creat Ratio 15.4 RATIO (10-20); Calcium,Total 9.7 mg/dL (8.5-10.1); Chloride 103 mmol/L (98-107); Cholesterol 138 mg/dL (200); Creatinine, Serum 0.78 mg/dL (0.55-1.02); EST Glomerular Filtration Rate 78 mL/min (>60); Est Glom Filt Rate - Afr Amer 94 mL/min (>60); Globulin 3.4 g/dL (2.2-4.2); Glucose 168 mg/dL (74-106); High Density Lipoprotein 66 mg/dL; Potassium 4.3 mmol/L (3.5-5.1); Protein, Total 6.9 g/dL (6.4-8.2); Sodium Level 137 mmol/L (136-145); Thyroid Stim Hormone (TSH) 1.01 uIU/mL (0.358-3.74); Triglycerides 155 mg/dL; Very Low Density Lipoprotein 31 mg/dL (5-40)
== END ==
PROVIDERS: PCP Family Medicine; Referring Provider Family Medicine; Visit Provider Family Medicine
DX: E11.9 Type 2 diabetes mellitus without complications (principal)
CPT/HCPCS: 36415; 80053; 80061; 82043; 82570; 83036; 84443

== ENCOUNTER 2021-11-18 08:44 | Outpatient (CLI) | payer MEDICARE, OTHER, SELFPAY ==
[2021-11-18 09:43] LABS: Absolute Lymphocyte Count 2.35 X10^3/uL (0.83-4.51); Absolute Neutrophil Count 3.2 X10^3/uL (2.0-7.7); Basophil# 0.06 X10^3/uL; Basophil% 0.9 % (0-1); Eosinophil# 0.17 X10^3/uL; Eosinophils% 2.7 % (0-5); Hematocrit 45.5 % (37-47); Hemoglobin 15.4 g/dL (12.0-15.0); Lymphocyte # 2.35 X10^3/ul (0.83-4.51); Lymphocyte % 37.1 % (19-41); Mean Corp Hgb Conc 33.8 g/dL (32-36); Mean Corpuscular Hgb 28.8 pg (27.0-32.0); Mean Corpuscular Volume 85.2 fL (81-99); Mean Platelet Vol. 11.2 fl (6.2-12.0); Monocyte% 7.9 % (0-10); NRBC Flagged by Analyzer 0 % (0-5); Neutrophil # 3.22 X10^3/uL (2.7-7.7); Neutrophil % 50.9 % (47-70); Platelet Count 324 K/mm3 (150-450); RBC Distribution Width CV 13.2 % (11.6-14.6); RBC Distribution Width SD 40.6 fl (35.1-43.9); Red Blood Count 5.34 M/mm3 (4.2-5.4); White Blood Count 6.3 K/mm3 (4.4-11.0)
[2021-11-18 10:07] LABS: Hemoglobin A1c 7.5 % (3.8-5.6)
[2021-11-18 10:08] LABS: Vitamin B12 625 pg/mL (211-911)
[2021-11-18 10:32] LABS: ALB/GLOB Ratio 1.2 RATIO (0.9-2.4); AST(SGOT) 16 U/L (15-37); Alanine Aminotransfer ALT/SGPT 25 U/L (13-56); Albumin, Serum 3.7 g/dL (3.2-5.0); Alkaline Phosphatase 82 U/L (45-117); Anion Gap 9 (5-15); BUN 13 mg/dL (7-18); BUN/Creat Ratio 17.3 RATIO (10-20); Calcium,Total 10.2 mg/dL (8.5-10.1); Chloride 105 mmol/L (98-107); Cholesterol 118 mg/dL (200); Creatinine, Serum 0.75 mg/dL (0.55-1.02); EST Glomerular Filtration Rate 81 mL/min (>60); Est Glom Filt Rate - Afr Amer 98 mL/min (>60); Ferritin 24 ng/mL (8-252); Glucose 197 mg/dL (74-106); High Density Lipoprotein 56 mg/dL; Iron 109 ug/dL (50-170); Magnesium 1.6 mg/dL (1.6-2.6); Phosphorus 3.1 mg/dL (2.5-4.9); Potassium 4.4 mmol/L (3.5-5.1); Protein, Total 6.7 g/dL (6.4-8.2); Sodium Level 137 mmol/L (136-145); Triglycerides 141 mg/dL; Very Low Density Lipoprotein 28 mg/dL (5-40)
[2021-11-18 14:18] LABS: Microalbumin,Random Urine 26.5 mg/L (NO RANGE EST.); Microalbumin:Creatinine Ratio 10.2 mg/g CRE (<30 mg/g CRE)
[2021-11-27 15:08] LABS: Vitamin B1, Thiamine 237.6 nmol/L (66.5-200.0)
[2021-11-27 16:08] LABS: VITAMIN B6 66.5 ug/L (2.0-32.8); Zinc, Plasma or Serum 76 ug/dL (44-115)
== END 2021-11-18 23:59 | disposition home or self-care (01) ==
LOC: LAB 08:45
PROVIDERS: PCP Family Medicine; Visit Provider Family Medicine
DX: E11.65 Type 2 diabetes mellitus with hyperglycemia (principal); E11.42 Type 2 diabetes mellitus with diabetic polyneuropathy; E78.00 Pure hypercholesterolemia, unspecified; Z98.84 Bariatric surgery status
CPT/HCPCS: 36415; 80053; 80061; 82043; 82570; 82607; 82728; 83036; 83540; 83735; 84100; 84207; 84425; 84630; 85025

== ENCOUNTER → 2022-01-29 | Outpatient (CLI) | payer MEDICARE, OTHER, SELFPAY ==
[2022-01-29 18:58] LABS: ALB/GLOB Ratio 1.3 RATIO (0.9-2.4); AST(SGOT) 20 U/L (15-37); Alanine Aminotransfer ALT/SGPT 30 U/L (13-56); Albumin, Serum 3.9 g/dL (3.2-5.0); Alkaline Phosphatase 79 U/L (45-117); Anion Gap 10 (5-15); BUN 15 mg/dL (7-18); BUN/Creat Ratio 18.5 RATIO (10-20); Calcium,Total 10.3 mg/dL (8.5-10.1); Chloride 107 mmol/L (98-107); Creatinine, Serum 0.81 mg/dL (0.55-1.02); EST Glomerular Filtration Rate 74 mL/min (>60); Est Glom Filt Rate - Afr Amer 90 mL/min (>60); Glucose 150 mg/dL (74-106); Potassium 3.9 mmol/L (3.5-5.1); Protein, Total 6.9 g/dL (6.4-8.2); Sodium Level 140 mmol/L (136-145)
[2022-02-01 11:43] LABS: PTHIN 53.6 pg/mL (18.4-80.1)
== END | disposition home or self-care (01) ==
LOC: MFPLAB 16:52
PROVIDERS: PCP Family Medicine; Referring Provider Family Medicine; Visit Provider Family Medicine
DX: E11.69 Type 2 diabetes mellitus with other specified complication (principal); E83.52 Hypercalcemia
CPT/HCPCS: 36415; 80053; 83970

== ENCOUNTER → 2022-04-06 | Outpatient (CLI) | payer MEDICARE, OTHER, SELFPAY ==
[2022-04-06 15:40] LABS: Mucous, Urine 0 SEEN /hpf (<or=2+)
[2022-04-06 18:06] LABS: Absolute Lymphocyte Count 3.61 X10^3/uL (0.83-4.51); Absolute Neutrophil Count 4.4 X10^3/uL (2.0-7.7); Basophil# 0.07 X10^3/uL; Basophil% 0.8 % (0-1); Eosinophil# 0.33 X10^3/uL; Eosinophils% 3.6 % (0-5); Hemoglobin 15.1 g/dL (12.0-15.0); Lymphocyte # 3.61 X10^3/ul (0.83-4.51); Lymphocyte % 39.8 % (19-41); Mean Corp Hgb Conc 32.1 g/dL (32-36); Mean Corpuscular Hgb 28.7 pg (27.0-32.0); Mean Corpuscular Volume 89.2 fL (81-99); Mean Platelet Vol. 11.7 fl (6.2-12.0); Monocyte# 0.66 X10^3/uL; Monocyte% 7.3 % (0-10); NRBC Flagged by Analyzer 0 % (0-5); Neutrophil # 4.38 X10^3/uL (2.7-7.7); Neutrophil % 48.2 % (47-70); Platelet Count 262 K/mm3 (150-450); RBC Distribution Width CV 13.4 % (11.6-14.6); RBC Distribution Width SD 43.7 fl (35.1-43.9); Red Blood Count 5.27 M/mm3 (4.2-5.4); White Blood Count 9.1 K/mm3 (4.4-11.0)
[2022-04-06 18:21] LABS: Color, Urine Yellow (Yellow); Glucose, Dipstick Normal (Normal); Ketone-Dipstick 5 mg/dl (Negative); Leukocyte Esterase-Dipstick 100 /ul (Negative); Nitrite-Dipstick Negative (Negative); Occult Blood-Urine Negative /ul (Negative); Protein-Dipstick 15 mg/dl (Negative); Urine Bilirubin Dipstick Negative (Negative); Urine Clarity Clear (Clear); Urine Urobilinogen Normal (Normal)
[2022-04-06 19:10] LABS: ALB/GLOB Ratio 1.3 RATIO (0.9-2.4); AST(SGOT) 14 U/L (15-37); Alanine Aminotransfer ALT/SGPT 26 U/L (13-56); Albumin, Serum 3.8 g/dL (3.2-5.0); Alkaline Phosphatase 82 U/L (45-117); Anion Gap 8 (5-15); BUN 16 mg/dL (7-18); BUN/Creat Ratio 18.2 RATIO (10-20); Calcium,Total 10.2 mg/dL (8.5-10.1); Chloride 107 mmol/L (98-107); Creatinine, Serum 0.88 mg/dL (0.55-1.02); EST Glomerular Filtration Rate 67 mL/min (>60); Est Glom Filt Rate - Afr Amer 82 mL/min (>60); Glucose 137 mg/dL (74-106); Hemoglobin A1c 6.4 % (3.8-5.6); Potassium 4.1 mmol/L (3.5-5.1); Protein, Total 6.8 g/dL (6.4-8.2); Sodium Level 139 mmol/L (136-145)
[2022-04-06 19:25] LABS: Bacteria RARE /hpf (None Seen); Red Blood Cells-Urine 0-5 SEEN /hpf (0-5); Squamous Epithelial Cells - UA 0-5 SEEN /hpf (5-10); White Blood Cells 5-10 SEEN /hpf (0-5)
[2022-04-06 19:26] LABS: Calcium Oxalate Crystals Ur 1+ /hpf (<or=2+)
[2022-04-06 21:58] LABS: Microalbumin,Random Urine 15.2 mg/L (NO RANGE EST.); Microalbumin:Creatinine Ratio 7.8 mg/g CRE (<30 mg/g CRE)
[2022-04-07 09:38] LABS: PTHIN 58.2 pg/mL (18.4-80.1)
== END | disposition home or self-care (01) ==
LOC: MFPLAB 15:34
PROVIDERS: PCP Family Medicine; Referring Provider Family Medicine; Visit Provider Family Medicine
DX: E83.52 Hypercalcemia (principal); E11.9 Type 2 diabetes mellitus without complications
CPT/HCPCS: 36415; 80053; 81001; 82043; 82570; 83036; 83970; 84443; 85025

== ENCOUNTER → 2022-04-17 | Outpatient (CLI) | payer MEDICARE, OTHER, SELFPAY ==
--- NOTE | 2022-04-17 08:52 | US_ITS ---
STUDY: ABDOMINAL ULTRASOUND REASON FOR EXAM: Female, 72 years old. ABDOMINAL PAIN TECHNIQUE: Transabdominal ultrasound was performed with real-time and static cordero scale imaging. COMPARISON: None. FINDINGS: Liver: There is increased echogenicity consistent with fatty infiltration. The bile ducts are within normal limits. There is hepatic color flow. The direction of portal flow is hepatopetal. There is no demonstrated mass lesion. Gallbladder: Normal distended gallbladder. The gallbladder wall measures 1.6 mm. There is a negative sonographic Mcpherson''s sign. There is no pericholecystic fluid. There is biliary sludge dependent within the gallbladder vs small gallstones. Common Bile Duct (C.B.D.): The common bile duct measures ( in mm): 4.6 Pancreas: Normal size of the head and body of the pancreas. There is increased echogenicity of the pancreas. There is no demonstrated pancreatic mass or cyst. Spleen: Normal size of the spleen. The spleen measures 8 cm. Right Kidney: Normal size of the right kidney. The right kidney measures 12 cm. .There is a normal cortex of the kidney. There is no demonstrated renal mass or cyst. There is no right hydronephrosis. Left Kidney: Normal size of the left kidney. The left kidney measures 12.1 cm. . There is a normal cortex of the left kidney. There is no demonstrated renal mass or cyst. There is no left hydronephrosis. Aorta: 21 mm in maximal aortic diameter. I.V.C.: The IVC is patent. There is no ascites. US/Abdomen Complete IMPRESSION: Fatty liver. There is biliary sludge dependent within the gallbladder vs small gallstones. Electronically Signed: Regan Bermudez MD at 15:04 EDT ,
== END | disposition home or self-care (01) ==
PROVIDERS: PCP Family Medicine; Visit Provider Family Medicine
DX: R10.9 Unspecified abdominal pain (principal)
CPT/HCPCS: 76700

== ENCOUNTER 2022-07-26 17:22 | Emergency (ER) | payer MEDICARE, OTHER, SELFPAY ==
[2022-07-26 17:47] VITALS: BP 165/145; PULSE 82; RESP 20; TEMP 36.1; O2SAT 98; BMI 26.9
[2022-07-26 17:55] LABS: Bedside Glucose 241 mg/dL (74-106)
[2022-07-26 18:42] VITALS: BP 144/75; PULSE 84; RESP 18; O2SAT 100
--- NOTE | 2022-07-26 19:07 | EDS_ITS ---
HPI History of Present Illness Chief Complaint: Hypoglycemia Informant: patient and friend Narrative Narrative: Patient states her sugar went low today. This does not normally happen but she knows why it happened. She took her Ozempic in the morning. She did not eat after that. Normally she would. She rushed because she wanted to get a lot of things at the store before the holidays. She states she was in the store for a long time pushing a very heavy for cart. She was starting to check out when she felt the typical shakiness of her low sugar. She was rushing to get that checked out completed. She then took some glucose tablets and drank V8 juice.. She feels that she then had a panic attack because this was happening in [facility]. She does have a history of panic attack and this felt typical. The combination of the V8 juice, low sugar and panic attack then caused her to have vomiting. She states she vomited the V8 juice but no blood. She is not nauseated now. She feels fine now and would like to just go home. Her friend who is known her for many years also says she feels fine. We did talk about at least doing a p.o. challenge which she and her friend have agreed to. She really does not want an extensive work-up. She never had chest pain trouble breathing or neurologic symptoms. [facility] Medical History Anxiety Depression Diabetes mellitus Hypertension Hypothyroidism Home Medications atorvastatin 40 mg tablet 40 mg PO QHS 05/01/17 [History Last Taken Unknown] bupropion HCl 300 mg 24 hr tablet, extended release 300 mg PO DAILY 05/01/17 [History Last Taken Unknown] buspirone 5 mg tablet 30 mg PO BID 05/01/17 [History Last Taken Unknown] glipizide 10 mg tablet 10 mg PO BIDAC 05/01/17 [History Last Taken Unknown] liothyronine 5 mcg tablet 5 mcg PO DAILY 05/01/17 [History Last Taken Unknown] lisinopril 2.5 mg tablet 2.5 mg PO QHS 05/01/17 [History Last Taken Unknown] metformin 1,000 mg tablet 1,000 mg PO BIDCM 05/01/17 [History Last Taken Unknown] ascorbic acid (vitamin C) 500 mg tablet (Vitamin C) 500 mg PO DAILY 03/28/21 [History Last Taken Unknown] cholecalciferol (vitamin D3) 25 mcg (1,000 unit) chewable tablet (Vitamin D3) 25 mcg PO DAILY 03/28/21 [History Last Taken Unknown] cinnamon bark 500 mg capsule (Cinnamon) 500 mg PO DAILY 03/28/21 [History Last Taken Unknown] coenzyme Q10 50 mg capsule (Co Q-10) 50 mg PO DAILY 03/28/21 [History Last Taken Unknown] fluoxetine 40 mg capsule 40 mg PO DAILY 03/28/21 [History Last Taken Unknown] Allergy/AdvReac Type Severity Reaction Status Date / Time azithromycin [From Zithromax] Allergy Shortness Verified 07/26/22 17:43 of breath codeine AdvReac Nausea Verified 07/26/22 17:43 pentazocine lactate AdvReac Nausea Verified 07/26/22 17:43 [From Talwin] Surgical History H/O gastric bypass History of tonsillectomy History of wisdom tooth extraction Social History Smoking Status: Former smoker substance use type: does not use ROS ROS ED Constitutional Constitutional ED: Denies chills, fever(s) or subjective Eyes Eyes: Denies diplopia ENT ENT ED: Denies rhinorrhea or sore throat Cardiovascular Cardiovascular: Denies chest pain, palpitations or racing heartbeat Respiratory/Chest Respiratory/Chest: Denies cough or dyspnea Gastrointestinal Gastrointestinal: Reports vomiting; Denies abdominal pain Genitourinary Genitourinary ED: Denies dysuria or hematuria Musculoskeletal Musculoskeletal: Denies arthralgias or myalgias Integumentary Denies rash Neurologic Neurologic: Denies headache(s), paresthesias or weakness Psychiatric Psychiatric: Reports anxiety Endocrine Endocrinology: Denies polydipsia or polyuria Hematologic/Lymphatic Hematologic/Lymphatic: Denies easy bleeding or easy bruising Allergic/Immunologic Allergic/Immunologic ED: Denies urticaria EXAM Physical Exam Const Vital Signs: 07/26/22 17:47 07/26/22 18:42 07/26/22 18:45 Temperature 97.0 F L Temperature Source Temporal Pulse Rate 82 84 Respiratory Rate 20 H 18 Respiratory Pattern Normal Blood Pressure 165/145 H 144/75 H Blood Pressure Mean 151 98 Pulse Ox 98 100 Oxygen Delivery Method Room Air Room Air Positive well nourished and well developed General Appearance ED: well developed and NAD; Negative for cyanotic, diaphoretic or pallor HEENT Reports moist mucous membranes Eyes EOMs intact bilaterally General Eye ED: Negative for scleral icterus Neck no lymphadenopathy and supple Resp normal respiratory effort and clear to auscultation bilaterally Cardio regular rate, regular rhythm and no murmurs GI normal to inspection, nondistended, normoactive bowel sounds, non-tender, non- distended and no masses Back/Spine no CVA tenderness Extremity General Extremety ED: Negative for edema or tenderness General Extremity: Negative for edema Neuro oriented x3 Sensorium / Orientation: Negative for lethargic or stuporous Psych mental status grossly normal Skin no rashes or lesions noted General Skin Exam: Negative for jaundice or pallor MDM MDM MDM Narrative Medical decision making narrative: Patient had p.o. challenge. She feels well. She wants to go home. She has all her meds and monitoring equipment at home. Lab Data Attestation: I reviewed the patient's lab results. Labs: Laboratory Results - last 24 hr 07/26/22 17:33 POC Glucose 241 H Discharge Plan Triage Chief Complaint: Hypoglycemia ED Provider: Jacek Wilson Dx/Rx/DC Orders Clinical Impression: Hypoglycemia Instructions: Hypoglycemia (Low Blood Sugar) Prescriptions: No Action atorvastatin 40 MG tablet 40 mg PO QHS buspirone 5 MG tablet 30 mg PO BID glipizide 10 MG tablet 10 mg PO BIDAC liothyronine 5 MCG tablet 5 mcg PO DAILY metformin 1,000 MG tablet 1,000 mg PO BIDCM lisinopril 2.5 MG tablet 2.5 mg PO QHS bupropion HCl 300 MG tablet extended release 24 hr 300 mg PO DAILY fluoxetine 40 mg Capsule 40 mg PO DAILY coenzyme Q10 [Co Q-10] 50 mg Capsule 50 mg PO DAILY ascorbic acid (vitamin C) [Vitamin C] 500 mg Tablet 500 mg PO DAILY cinnamon bark [Cinnamon] 500 mg Capsule 500 mg PO DAILY cholecalciferol (vitamin D3) [Vitamin D3] 25 mcg (1,000 unit) Tablet,Chewable 25 mcg PO DAILY Primary Care Provider: Hugo Tena Referrals: Hugo Tena MD [Primary Care Provider] - As Needed Disposition Disposition: Home, Self Care
[2022-07-26 20:15] LABS: Bedside Glucose 190 mg/dL (74-106)
== END 2022-07-26 19:58 | disposition home or self-care (01) ==
PROVIDERS: Emergency Provider Emergency Medicine; PCP Family Medicine; Visit Provider Emergency Medicine
DX: E11.649 Type 2 diabetes mellitus with hypoglycemia without coma (principal); R11.10 Vomiting, unspecified; I10 Essential (primary) hypertension; Z87.891 Personal history of nicotine dependence; F41.9 Anxiety disorder, unspecified
CPT/HCPCS: 82962; 99282

== ENCOUNTER → 2022-09-14 | Outpatient (CLI) | payer MEDICARE, OTHER, SELFPAY ==
--- NOTE | 2022-09-14 13:54 | BI_ITS ---
MAMMOGRAPHY - BILATERAL SCREENING REASON FOR EXAM: Female, 72 years old. Routine annual screening examination. PERTINENT HISTORY: Non-contributory. TECHNIQUE: Digital bilateral breast santos (3D mammographic acquisition) in the CC and MLO projections. 2-D mediolateral oblique (MLO) and craniocaudad (CC) views of both breasts were obtained. CAD: Full Field Digital Mammography with Computer Added Detection was performed. COMPARISON: Comparison is made with prior study dated 04/09/2021 and 01/23/2015. FINDINGS: Breast Composition: There are scattered areas of fibroglandular density. There are no dominant masses or suspicious calcifications. No other significant abnormalities are identified. There has been no significant change since the prior study. BI/SCRN MAMM (CAD)W/SANTOS BILAT IMPRESSION: Stable bilateral screening mammogram. Yearly follow-up mammogram recommended. (A) ASSESSMENT CATEGORY: BIRADS Category 1: Negative. A letter regarding these results will be sent to the patient by the facility within 30 days. Approximately 10% of breast cancers are not detected by mammography. A normal mammogram should not delay biopsy of a clinically suspicious abnormality. [id number] Electronically Signed: Favian Hickman MD at 15:12 EST ,
--- NOTE | 2022-09-14 14:05 | BD_ITS ---
STUDY: DUAL ENERGY X-RAY ABSORPTIOMETRY / DXA REASON FOR EXAM: Female, 72 years old. [id number] TECHNIQUE: Bone Mineral Density (BMD) measurements of lumbar spine and bilateral hips were obtained. COMPARISON: None. FINDINGS: Lumbar Spine (L1-L4): g/cm2 (1.097) / T-score (0.5) / Z-score (2.6) Findings are suggestive of normal bone density with a low fracture risk. Left Femur Total: g/cm2 (0.989) / T-score (0.4) / Z-score (1.9) Left Femoral Neck: g/cm2 (0.815) / T-score (-0.3) / Z-score (1.5) Right Femur Total: g/cm2 (0.997) / T-score (0.5) / Z-score (2.0) Right Femoral Neck: g/cm2 (0.803) / T-score (-0.4) / Z-score (1.4) BD/Dexa Bone Density Study IMPRESSION: The patient is considered normal as outlined below according to World [employer] Organization (WHO) criteria with a low fracture risk. Reference Information: The T-score is the number of standard deviations above or below the standard which is normal for young adults at their peak bone mineral density. The World Health Organization (WHO) interprets the T-scores as follows: Above -1 Normal bone density Between -1 and -2.5 Osteopenia Equal to / or below -2.5 Osteoporosis As a practical clinical guideline, osteopenia may be graded as follows: Mild -1 through -1.5 Moderate -1.6 through -2.0 Severe -2.1 through -2.4 The Z-score is the number of standard deviations above or below age-matched controls. A Z-score of less than -1.5 would be considered abnormal. References: 1. NIH Osteoporosis and Related Bone Diseases www osteo.org 2. International Society for Clinical Densitometry www iscd.org 3. National Osteoporosis Foundation www nof.org Electronically Signed: Favian Hickman MD at 8:40 EST ,
== END | disposition home or self-care (01) ==
LOC: OPBD 13:52
PROVIDERS: PCP Family Medicine; Visit Provider Family Medicine
DX: Z12.31 Encounter for screening mammogram for malignant neoplasm of breast (principal); Z78.0 Asymptomatic menopausal state
CPT/HCPCS: 77063; 77067; 77080

== ENCOUNTER → 2022-11-17 | Outpatient (CLI) | payer MEDICARE, OTHER, SELFPAY ==
[2022-11-17 17:37] LABS: Absolute Lymphocyte Count 2.98 X10^3/uL (0.83-4.51); Basophil# 0.05 X10^3/uL; Basophil% 0.6 % (0-1); Eosinophils% 4.9 % (0-5); Hematocrit 46.8 % (37-47); Hemoglobin 15.2 g/dL (12.0-15.0); Lymphocyte # 2.98 X10^3/ul (0.83-4.51); Lymphocyte % 36.8 % (19-41); Mean Corp Hgb Conc 32.5 g/dL (32-36); Mean Corpuscular Hgb 29.1 pg (27.0-32.0); Mean Corpuscular Volume 89.5 fL (81-99); Mean Platelet Vol. 11.5 fl (6.2-12.0); Monocyte# 0.66 X10^3/uL; Monocyte% 8.2 % (0-10); NRBC Flagged by Analyzer 0 % (0-5); Neutrophil # 3.97 X10^3/uL (2.7-7.7); Neutrophil % 49.1 % (47-70); Platelet Count 304 K/mm3 (150-450); RBC Distribution Width CV 12.9 % (11.6-14.6); RBC Distribution Width SD 42.4 fl (35.1-43.9); Red Blood Count 5.23 M/mm3 (4.2-5.4); White Blood Count 8.1 K/mm3 (4.4-11.0)
[2022-11-17 17:59] LABS: Hemoglobin A1c 6.3 % (3.8-5.6)
[2022-11-17 18:03] LABS: ALB/GLOB Ratio 1.3 RATIO (0.9-2.4); AST(SGOT) 17 U/L (15-37); Alanine Aminotransfer ALT/SGPT 29 U/L (13-56); Albumin, Serum 3.7 g/dL (3.2-5.0); Alkaline Phosphatase 80 U/L (45-117); Anion Gap 9 (5-15); BUN 15 mg/dL (7-18); BUN/Creat Ratio 19.6 RATIO (10-20); Calcium,Total 10.5 mg/dL (8.5-10.1); Chloride 105 mmol/L (98-107); Cholesterol 105 mg/dL (200); Creatinine, Serum 0.76 mg/dL (0.55-1.02); EST Glomerular Filtration Rate 79 mL/min (>60); Est Glom Filt Rate - Afr Amer 96 mL/min (>60); Globulin 2.9 g/dL (2.2-4.2); Glucose 167 mg/dL (74-106); High Density Lipoprotein 56 mg/dL; Potassium 3.9 mmol/L (3.5-5.1); Protein, Total 6.6 g/dL (6.4-8.2); Sodium Level 138 mmol/L (136-145); Triglycerides 118 mg/dL; Very Low Density Lipoprotein 24 mg/dL (5-40)
[2022-11-17 18:09] LABS: Microalbumin,Random Urine 10.7 mg/L (NO RANGE EST.); Microalbumin:Creatinine Ratio 6.2 mg/g CRE (<30 mg/g CRE)
[2022-11-18 10:23] LABS: PTHIN 50.3 pg/mL (18.4-80.1)
[2022-11-19 12:58] LABS: T4 Free Direct 1.05 ng/dL (0.76-1.46); Thyroid Stim Hormone (TSH) 0.91 uIU/mL (0.358-3.74)
== END | disposition home or self-care (01) ==
LOC: MFPLAB 14:58
PROVIDERS: Nurse Practitioner Family; PCP Family Medicine; Referring Provider Family Medicine; Visit Provider Family Medicine
DX: E11.9 Type 2 diabetes mellitus without complications (principal)
CPT/HCPCS: 36415; 80053; 80061; 82043; 82570; 83036; 83970; 84439; 84443; 85025

== ENCOUNTER → 2022-12-15 | Outpatient (CLI) | payer MEDICARE, OTHER, SELFPAY ==
[2022-12-15 12:47] LABS: Anion Gap 9 (5-15); BUN 15 mg/dL (7-18); BUN/Creat Ratio 19.9 RATIO (10-20); Calcium,Total 10.8 mg/dL (8.5-10.1); Chloride 103 mmol/L (98-107); Creatinine, Serum 0.75 mg/dL (0.55-1.02); EST Glomerular Filtration Rate 81 mL/min (>60); Est Glom Filt Rate - Afr Amer 98 mL/min (>60); Glucose 108 mg/dL (74-106); Potassium 4.2 mmol/L (3.5-5.1); Sodium Level 137 mmol/L (136-145)
[2022-12-15 12:50] LABS: Vitamin D,25 Hydroxy 44.2 ng/mL
== END | disposition home or self-care (01) ==
LOC: MFPLAB 11:26
PROVIDERS: PCP Family Medicine; Referring Provider Family Medicine; Visit Provider Family Medicine
DX: E83.52 Hypercalcemia (principal)
CPT/HCPCS: 36415; 80048; 82306

== ENCOUNTER → 2023-01-04 | Outpatient (CLI) | payer MEDICARE, OTHER, SELFPAY ==
--- NOTE | 2023-01-04 08:25 | NM_ITS ---
CLINICAL: 72-year-old female with history of hypercalcemia. 99m Tc SESTAMIBI DUAL PHASE PARATHYROID SCINTIGRAPHY COMPARISON: None available FINDINGS: Following the intravenous administration of 27.1 mCi of 99m Tc sestamibi, image acquisitions of the anterior neck at 20 minutes and 2.0 hours post radiopharmaceutical provision reveal: 1. Immediate static blood pool acquisitions demonstrate distribution of the radiopharmaceutical uniformly apparent in both lobes of a U-shaped thyroid gland. 2. Delayed images depict symmetric incomplete washout of the radiopharmaceutical from the previously defined thyroid colloid. There is no evidence of focal retained radiopharmaceutical in the right height left thyroid colloid. NM/Parathyroid Scan IMPRESSION: 1. NEGATIVE 99m Tc SESTAMIBI PARATHYROID IMAGING DUAL PHASE EXAMINATION. 2. There is no definitive scintigraphic evidence of parathyroid adenoma on the present evaluation. 3. Incomplete-delayed washout of the radiopharmaceutical from the entire functioning thyroid colloid may be secondary to multinodular goiter, chronic lymphocytic thyroiditis. (Mac[place]o, Radiographics 19: 601, 1999). Electronically Signed: Karthikeyan Garcia, at 22:38 EDT ,
== END | disposition home or self-care (01) ==
LOC: NM 08:15
PROVIDERS: PCP Family Medicine; Referring Provider Family Medicine; Visit Provider Family Medicine
DX: E83.52 Hypercalcemia (principal)
CPT/HCPCS: 78070; A9500

== ENCOUNTER → 2023-04-07 | Outpatient (CLI) | payer MEDICARE, OTHER, SELFPAY ==
[2023-04-07 10:17] LABS: Absolute Lymphocyte Count 2.26 X10^3/uL (0.83-4.51); Absolute Neutrophil Count 2.3 X10^3/uL (2.0-7.7); Basophil# 0.06 X10^3/uL; Basophil% 1.1 % (0-1); Eosinophil# 0.24 X10^3/uL; Eosinophils% 4.5 % (0-5); Hematocrit 46.1 % (37-47); Hemoglobin 14.9 g/dL (12.0-15.0); Lymphocyte # 2.26 X10^3/ul (0.83-4.51); Lymphocyte % 42.3 % (19-41); Mean Corp Hgb Conc 32.3 g/dL (32-36); Mean Corpuscular Hgb 28.9 pg (27.0-32.0); Mean Corpuscular Volume 89.5 fL (81-99); Mean Platelet Vol. 11.3 fl (6.2-12.0); Monocyte# 0.48 X10^3/uL; NRBC Flagged by Analyzer 0 % (0-5); Neutrophil # 2.28 X10^3/uL (2.7-7.7); Neutrophil % 42.7 % (47-70); Platelet Count 257 K/mm3 (150-450); RBC Distribution Width CV 12.7 % (11.6-14.6); RBC Distribution Width SD 41.9 fl (35.1-43.9); Red Blood Count 5.15 M/mm3 (4.2-5.4); White Blood Count 5.3 K/mm3 (4.4-11.0)
[2023-04-07 10:38] LABS: Hemoglobin A1c 6.2 % (3.8-5.6)
[2023-04-07 11:16] LABS: ALB/GLOB Ratio 1.3 RATIO (0.9-2.4); AST(SGOT) 15 U/L (15-37); Alanine Aminotransfer ALT/SGPT 28 U/L (13-56); Albumin, Serum 3.6 g/dL (3.2-5.0); Alkaline Phosphatase 77 U/L (45-117); Anion Gap 6 (5-15); BUN 13 mg/dL (7-18); Chloride 104 mmol/L (98-107); Cholesterol 112 mg/dL (200); Creatinine, Serum 0.69 mg/dL (0.55-1.02); EST Glomerular Filtration Rate 90 mL/min (>60); Est Glom Filt Rate - Afr Amer 109 mL/min (>60); Globulin 2.7 g/dL (2.2-4.2); Glucose 139 mg/dL (74-106); High Density Lipoprotein 66 mg/dL; Potassium 4.3 mmol/L (3.5-5.1); Protein, Total 6.3 g/dL (6.4-8.2); Sodium Level 136 mmol/L (136-145); Triglycerides 84 mg/dL; Very Low Density Lipoprotein 17 mg/dL (5-40)
== END | disposition home or self-care (01) ==
LOC: MFPLAB 09:03
PROVIDERS: PCP Family Medicine; Visit Provider Family Medicine
DX: E11.65 Type 2 diabetes mellitus with hyperglycemia (principal)
CPT/HCPCS: 36415; 80053; 80061; 83036; 85025

== ENCOUNTER → 2023-11-24 | Outpatient (CLI) | payer MEDICARE, SELFPAY ==
[2023-11-24 12:25] LABS: Absolute Lymphocyte Count 1.94 X10^3/uL (0.83-4.51); Absolute Neutrophil Count 3.1 X10^3/uL (2.0-7.7); Basophil# 0.08 X10^3/uL; Basophil% 1.4 % (0-1); Eosinophils% 3.4 % (0-5); Hematocrit 45.2 % (37-47); Hemoglobin 14.5 g/dL (12.0-15.0); Lymphocyte # 1.94 X10^3/ul (0.83-4.51); Lymphocyte % 33.4 % (19-41); Mean Corp Hgb Conc 32.1 g/dL (32-36); Mean Corpuscular Hgb 28.6 pg (27.0-32.0); Mean Corpuscular Volume 89.2 fL (81-99); Mean Platelet Vol. 11.1 fl (6.2-12.0); Monocyte# 0.48 X10^3/uL; Monocyte% 8.3 % (0-10); NRBC Flagged by Analyzer 0 % (0-5); Neutrophil # 3.07 X10^3/uL (2.7-7.7); Platelet Count 290 K/mm3 (150-450); RBC Distribution Width CV 13.3 % (11.6-14.6); RBC Distribution Width SD 43.4 fl (35.1-43.9); Red Blood Count 5.07 M/mm3 (4.2-5.4); White Blood Count 5.8 K/mm3 (4.4-11.0)
[2023-11-24 12:27] LABS: Bacteria 0 SEEN /hpf (None Seen); Mucous, Urine 0 SEEN /hpf (<or=2+)
[2023-11-24 13:02] LABS: Vitamin B12 601 pg/mL (211-911); Vitamin D,25 Hydroxy 44.4 ng/mL
[2023-11-24 13:34] LABS: ALB/GLOB Ratio 1.2 RATIO (0.9-2.4); AST(SGOT) 17 U/L (15-37); Alanine Aminotransfer ALT/SGPT 25 U/L (13-56); Albumin, Serum 3.6 g/dL (3.2-5.0); Alkaline Phosphatase 80 U/L (45-117); Anion Gap 7 (5-15); BUN 13 mg/dL (7-18); BUN/Creat Ratio 20.1 RATIO (10-20); Chloride 107 mmol/L (98-107); Cholesterol 131 mg/dL (200); Creatinine, Serum 0.65 mg/dL (0.55-1.02); EST Glomerular Filtration Rate 96 mL/min (>60); Est Glom Filt Rate - Afr Amer 116 mL/min (>60); Glucose 135 mg/dL (74-106); High Density Lipoprotein 72 mg/dL; Potassium 4.2 mmol/L (3.5-5.1); Protein, Total 6.6 g/dL (6.4-8.2); Sodium Level 140 mmol/L (136-145); T4 Free Direct 0.97 ng/dL (0.76-1.46); Triglycerides 124 mg/dL; Very Low Density Lipoprotein 25 mg/dL (5-40)
[2023-11-24 15:47] LABS: Color, Urine Yellow (Yellow); Glucose, Dipstick Normal (Normal); Ketone-Dipstick 5 mg/dl (Negative); Leukocyte Esterase-Dipstick 25 /ul (Negative); Nitrite-Dipstick Negative (Negative); Occult Blood-Urine 10 /ul (Negative); Protein-Dipstick 15 mg/dl (Negative); Specific Gravity, Urine 1.015 (1.002-1.030); Urine Bilirubin Dipstick Negative (Negative); Urine Clarity Clear (Clear); Urine Urobilinogen Normal (Normal)
[2023-11-24 15:53] LABS: Microalbumin,Random Urine 8.3 mg/L (NO RANGE EST.); Microalbumin:Creatinine Ratio 5.6 mg/g CRE (<30 mg/g CRE)
[2023-11-24 15:56] LABS: Red Blood Cells-Urine 0-5 SEEN /hpf (0-5); Squamous Epithelial Cells - UA 0-5 SEEN /hpf (5-10); White Blood Cells 0-5 SEEN /hpf (0-5)
[2023-11-24 17:08] LABS: PTHIN 41.5 pg/mL (18.4-80.1)
== END | disposition home or self-care (01) ==
LOC: MFPLAB 11:18
PROVIDERS: PCP Family Medicine; Visit Provider Family Medicine
DX: E11.8 Type 2 diabetes mellitus with unspecified complications (principal); R53.83 Other fatigue; Z78.0 Asymptomatic menopausal state; R79.89 Other specified abnormal findings of blood chemistry
CPT/HCPCS: 36415; 80053; 80061; 81001; 82043; 82306; 82570; 82607; 83970; 84439; 85025

== ENCOUNTER → 2024-07-26 | Outpatient (CLI) | payer MEDICARE, OTHER, SELFPAY ==
[2024-07-26 11:24] LABS: Mucous, Urine 0 SEEN /hpf (<or=2+); Red Blood Cells-Urine 0 SEEN /hpf (0-5)
[2024-07-26 15:38] LABS: Absolute Lymphocyte Count 2.35 X10^3/uL (0.83-4.51); Basophil# 0.06 X10^3/uL; Eosinophil# 0.14 X10^3/uL; Eosinophils% 2.3 % (0-5); Hematocrit 45.1 % (37-47); Hemoglobin 14.4 g/dL (12.0-15.0); Lymphocyte # 2.35 X10^3/ul (0.83-4.51); Lymphocyte % 38.8 % (19-41); Mean Corp Hgb Conc 31.9 g/dL (32-36); Mean Corpuscular Volume 87.7 fL (81-99); Mean Platelet Vol. 11.4 fl (6.2-12.0); Monocyte% 8.3 % (0-10); NRBC Flagged by Analyzer 0 % (0-5); Neutrophil # 2.98 X10^3/uL (2.7-7.7); Neutrophil % 49.1 % (47-70); Platelet Count 272 K/mm3 (150-450); RBC Distribution Width CV 14.2 % (11.6-14.6); RBC Distribution Width SD 45.8 fl (35.1-43.9); Red Blood Count 5.14 M/mm3 (4.2-5.4); White Blood Count 6.1 K/mm3 (4.4-11.0)
[2024-07-26 15:40] LABS: Color, Urine Yellow (Yellow); Glucose, Dipstick Normal (Normal); Ketone-Dipstick Negative (Negative); Leukocyte Esterase-Dipstick 25 /ul (Negative); Nitrite-Dipstick Positive (Negative); Occult Blood-Urine Negative /ul (Negative); Protein-Dipstick 15 mg/dl (Negative); Urine Bilirubin Dipstick Negative (Negative); Urine Clarity Sl. Cloudy (Clear); Urine Urobilinogen Normal (Normal)
[2024-07-26 15:55] LABS: PTHIN 64.6 pg/mL (18.4-80.1)
[2024-07-26 16:04] LABS: Bacteria 4+ /hpf (None Seen)
[2024-07-26 16:05] LABS: Squamous Epithelial Cells - UA 0-5 SEEN /hpf (5-10); White Blood Cells 5-10 SEEN /hpf (0-5)
[2024-07-26 16:06] LABS: ALB/GLOB Ratio 1.2 RATIO (0.9-2.4); AST(SGOT) 16 U/L (15-37); Alanine Aminotransfer ALT/SGPT 32 U/L (13-56); Albumin, Serum 3.7 g/dL (3.2-5.0); Alkaline Phosphatase 89 U/L (45-117); Anion Gap 7 (5-15); BUN 13 mg/dL (7-18); BUN/Creat Ratio 19.1 RATIO (10-20); Calcium,Total 10.7 mg/dL (8.5-10.1); Chloride 108 mmol/L (98-107); Cholesterol 142 mg/dL (200); Creatinine, Serum 0.68 mg/dL (0.55-1.02); EST Glomerular Filtration Rate 90 mL/min (>60); Est Glom Filt Rate - Afr Amer 109 mL/min (>60); Globulin 3.1 g/dL (2.2-4.2); Glucose 144 mg/dL (74-106); High Density Lipoprotein 74 mg/dL; Potassium 3.9 mmol/L (3.5-5.1); Protein, Total 6.8 g/dL (6.4-8.2); Sodium Level 140 mmol/L (136-145); Triglycerides 157 mg/dL; Very Low Density Lipoprotein 31 mg/dL (5-40)
[2024-07-26 16:17] LABS: Microalbumin,Random Urine 11.3 mg/L (NO RANGE EST.); Microalbumin:Creatinine Ratio 6.3 mg/g CRE (<30 mg/g CRE)
[2024-07-26 21:33] LABS: Hemoglobin A1c 6.9 % (3.8-5.6)
== END | disposition home or self-care (01) ==
LOC: MFPLAB 11:21
PROVIDERS: PCP Family Medicine; Referring Provider Family Medicine; Visit Provider Family Medicine
DX: E11.8 Type 2 diabetes mellitus with unspecified complications (principal); R79.89 Other specified abnormal findings of blood chemistry
CPT/HCPCS: 36415; 80053; 80061; 81001; 82043; 82570; 83036; 83970; 85025

== ENCOUNTER 2024-10-02 15:49 | Observation (INO) | payer MEDICARE, OTHER, SELFPAY ==
[2024-10-02 15:51] VITALS: BP 125/63; PULSE 96; RESP 16; TEMP 37.1; O2SAT 100; BMI 29.0
--- NOTE | 2024-10-02 16:38 | EKG12_ITS ---
Test Reason : DIZZINESS Blood Pressure : */* mmHG Vent. Rate : 90 BPM Atrial Rate : 90 BPM P-R Int : 156 ms QRS Dur : 80 ms QT Int : 382 ms P-R-T Axes : 69 49 63 degrees QTcB Int : 467 ms Normal sinus rhythm Normal ECG Confirmed by LAURIE ZURITA, ANGELITO ([id number]), electronic news gathering editor FLIP ROCA ([id number]) on 10/09/2024 6:51:45 AM Referred By: Confirmed By: ANGELITO SULLIVAN MD
--- NOTE | 2024-10-02 16:38 | CT_ITS ---
EXAM: CT HEAD WITHOUT INTRAVENOUS CONTRAST CLINICAL INDICATION: lightheaded, ams TECHNIQUE: Multiple axial images were obtained of the head without intravenous contrast. This CT exam was performed using one or more of the following dose reduction techniques: automated exposure control, adjustment of the mA and/or kV according to patient size, and/or use of iterative reconstruction technique. COMPARISON: No relevant prior studies available. FINDINGS: BRAIN AND EXTRA-AXIAL SPACES: Periventricular small vessel ischemic change. No midline shift or hydrocephalus. Diffuse parenchymal atrophy. Posterior fossa structures are unremarkable. Basal cisterns are patent. No acute intracranial hemorrhage, mass effect or edema. No evidence of acute cortical stroke. BONES/JOINTS: Unremarkable. No discrete lytic or blastic abnormalities. VASCULATURE: Atherosclerotic calcifications of the carotid siphons and vertebrobasilar arteries. SINUSES: Unremarkable as visualized. Clear. MASTOID AIR CELLS: Visualized sinuses and mastoid air cells are clear. ORBITS: Visualized globes, extraocular muscles, optic nerves and retrobulbar fat appear unremarkable. CT/Brain/Head without Contrast IMPRESSION: 1. No evidence of acute intracranial pathology. 2. Diffuse involutional changes and chronic ischemic small vessel white matter disease. AIDOC was utilized to assist in identifying pertinent positive findings. Electronically Signed: Guevara Ponce MD at 17:29 EST ,
--- NOTE | 2024-10-02 16:44 | EDS_ITS ---
HPI History of Present Illness Chief Complaint: Dizziness Narrative Narrative: Patient is a 74-year-old female with past medical history of CVA, depression, anxiety, hypertension, hypothyroidism, diabetes who presents to the emergency department with a chief complaint of lightheadedness and feeling like she was going to pass out. She states that this morning she woke around 3:30 AM and was her normal self however she states that she is having difficulty falling asleep but she was not feeling well overall. States that she was up until 8 AM when she got up to feed her cat. She states that she was able to do this without any difficulty she states that she went to her other house that she has and was up there the majority of the day. States that around 2:30 PM this afternoon she was doing scotty and states that she was having a very difficult time with this and states that this is not her normal self. She states that she attempted approximately 9 times and could not do this. She states that her hands were working but mentally she cannot focus to get this test completed therefore she stopped. States that she got up and went to the kitchen and noted that she became very lightheaded. In the triage note states that she was dizzy she states that things were not spinning or she she states that she developed tunnel vision like she was in a pass out. States that she stood there and things improved. She states that then she went to leave and noted that she had very similar symptoms again and noted that she lower herself to the ground so she did not fall and hit her head or pass out. Patient states that ultimately she was able to get down to her house. States that currently she has no symptoms and feels fine. Patient states that she has been compliant with her medications. States that she is not eating or drinking much today. [facility] Medical History (Updated 10/02/24 @ 20:[address] 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 Stroke Polycystic ovaries History of emotional problems Cataracts, bilateral Arthritis Allergies Depression Anxiety Hypertension Hypothyroidism Diabetes mellitus Home Medications ?Medication ?Instructions ?Recorded ?Last Taken ?Type atorvastatin 40 mg tablet 40 mg PO QHS 05/01/17 Unknown History metformin 1,000 mg tablet 1,000 mg PO BIDCM 05/01/17 Unknown History ascorbic acid (vitamin C) 500 mg 500 mg PO DAILY 03/28/21 Unknown History tablet (Vitamin C) cinnamon bark 500 mg capsule 500 mg PO DAILY 03/28/21 Unknown History (Cinnamon) coenzyme Q10 50 mg capsule (Co 50 mg PO DAILY 03/28/21 Unknown History Q-10) semaglutide 1 mg/dose (4 mg/3 mL) 1 mg subcut QWEEK 12/29/22 Unknown History subcutaneous pen injector (Ozempic) bupropion HCl 300 mg 24 hr tablet, 300 mg PO DAILY #90 tabs 03/28/24 Unknown Rx extended release buspirone 30 mg tablet 30 mg PO BID #180 tabs 03/28/24 Unknown Rx fluoxetine 40 mg capsule 40 mg PO DAILY #90 caps 03/28/24 Unknown Rx multivitamin 1 tab PO QDAY 06/26/24 Unknown History multivitamin with minerals 1 tab PO QDAY 06/26/24 Unknown History (Hair,Skin and Nails tablet) positive passage 1 cap PO QDAY 06/26/24 Unknown History ultimate eye support 1 cap PO QDAY 06/26/24 Unknown History women's wellness 1 cap PO TID 06/26/24 Unknown History Allergy/AdvReac Type Severity Reaction Status Date / Time caffeine Allergy Mild Other Verified 10/02/24 15:51 sertraline (From Zoloft) Allergy Mild Other Verified 10/02/24 15:51 azithromycin (From Zithromax) Allergy Shortness Verified 10/02/24 15:51 of breath codeine AdvReac Nausea Verified 10/02/24 15:51 pentazocine lactate (From AdvReac Nausea Verified 10/02/24 15:51 Ajay) Surgical History History of wisdom tooth extraction H/O gastric bypass History of tonsillectomy Social History household members: none Smoking Status: Former smoker alcohol intake: current details: wine rarely substance use type: does not use and other details: has marked yes but does not indicate drug of choice. what type of physical activity do you participate in: walking and yoga ROS ROS ED ROS Narrative Constitutional: Complains lightheadedness as noted above denies any fevers or chills denies headaches Eyes: Denies change in vision double vision blurry vision Cardiovascular: Denies chest pain or palpitations Respiratory: Denies coughing wheezing shortness of breath Abdomen: Denies abdominal pain nausea vomit diarrhea : Denies any urinary symptoms Neurological: Denies any numbness, weakness, tingling Musculoskeletal: Denies back pain Skin: Denies any rashes or lesions EXAM Physical Exam Narrative Exam Narrative: General: Patient is lying in bed rest comfortably did not appear to be acute distress Head: Atraumatic, normocephalic Eyes: PERRL bilaterally, EOMI bilaterally, no conjunctival injection noted Neck: Soft, supple, trachea midline Cardiovascular: Regular rate and rhythm no murmurs gallops rubs noted Respiratory: Clear to auscultation bilaterally no rales rhonchi or wheeze noted Abdomen: Soft, nondistended, nontender to palpation, bowel sounds present x 4 Extremities: +5/5 strength noted in the bilateral upper and lower extremities, radial pulses +2/4 in the bilateral extremities, no pedal edema on exam Neurological: Patient following commands knew that she was at [facility] year is 2024. NIH of 0 GCS 15. Patient completed finger-nose test bilaterally for any difficulty Skin: Warm, dry, intact Const Vital Signs: 10/02/24 15:51 10/02/24 16:59 10/02/24 17:51 Temperature 98.7 F Temperature Source Oral Pulse Rate 96 96 Respiratory Rate 16 25 H Blood Pressure 125/63 H 132/60 H Blood Pressure Mean 83 84 Pulse Ox 100 97 Oxygen Delivery Method Room Air Room Air Room Air 10/02/24 19:00 Temperature Temperature Source Pulse Rate 92 Respiratory Rate 22 H Blood Pressure 137/74 H Blood Pressure Mean 95 Pulse Ox 99 Oxygen Delivery Method Room Air MDM MDM MDM Narrative Medical decision making narrative: Patient is a 74-year-old female who presented to the emergency department chief complaint of lightheadedness feeling she was in a pass out and difficulty concentrating on her scotty activity which is abnormal for her. On the differential diagnose includes but not limited to intracranial hemorrhage, stroke, TIA, electrolyte abnormality, hypoglycemia. Once workup is obtained reviewed she will be reevaluated. Patient's CBC was reviewed showed no evidence leukocytosis white blood count was 5.3, hemoglobin 13.8, plate count was noted be normal at 221. Patient sodium was 136, potassium normal 3.8, creatinine normal at 0.84. Patient's magnesium was 1.7, troponin was noted to be normal at 6 with a delta troponin obtained normal at 6. Patient's EKG reviewed and independently interpreted myself showed sinus rhythm with a rate of 90 bpm. Patient's TSH normal at 2.02. Patient's chest x-ray reviewed by myself and by radiology showed no acute disease. Patient CT head and brain without contrast showed no acute intracranial patho logy she has diffuse involutional changes chronic ischemic small vessel white matter disease. On reevaluation patient she is feeling better. However given her symptoms have been taking her 9 times to do a task that she normally completes very easily as well as this near syncopal episode I do believe she will warrant admission for further evaluation management. Will discuss with hospitalist. Discussed case with hospitalist Dr. Benavides who accept the patient for admission. Patient was agreeable this plan she was given 325 mg of aspirin. All question concerns answered at bedside. Lab Data Labs: Laboratory Results - last 24 hr 10/02/24 10/02/24 16:18 18:28 WBC 5.3 RBC 4.78 Hgb 13.8 Hct 41.2 MCV 86.2 MCH 28.9 MCHC 33.5 RDW Std Deviation 40.4 RDW Coeff of Calli 12.9 Plt Count 221 MPV 11.0 Immature Gran % (Auto) 0.400 Neut % (Auto) 69.3 Lymph % (Auto) 12.8 L [place] % (Auto) 16.2 H Eos % (Auto) 0.4 Baso % (Auto) 0.9 Absolute Neuts (auto) 3.7 Absolute Lymphs (auto) 0.68 L Nucleated RBC % 0 Sodium 136 Potassium 3.8 Chloride 103 Carbon Dioxide 22.0 Anion Gap 11 BUN 11 Creatinine 0.84 Estim Creat Clear Calc 62.88 Est GFR (MDRD) Af Amer 86 Est GFR (MDRD) Non-Af 71 BUN/Creatinine Ratio 13.1 Glucose 216 H Calcium 9.6 Magnesium 1.7 Troponin I High Sens 6 6 TSH 2.020 Radiography Diagnostic Testing: Clinical Impression(s) from Imaging Studies Brain CT 10/02/24 16:38 IMPRESSION: 1. No evidence of acute intracranial pathology. 2. Diffuse involutional changes and chronic ischemic small vessel white matter disease. AIDOC was utilized to assist in identifying pertinent positive findings. Electronically Signed: Guevara Ponce MD at 17:29 EST , Chest X-Ray 10/02/24 17:10 IMPRESSION: No acute disease. Electronically Signed: Guevara Ponce MD at 17:25 EST , Discharge Plan Triage Chief Complaint: Dizziness ED Provider: Sanya Ovalle Dx/Rx/DC Orders Clinical Impression: Near syncope Prescriptions: No Action Ozempic 1 mg/dose (4 mg/3 mL) pen injector 1 mg subcut QWEEK fluoxetine 40 mg capsule 40 mg PO DAILY Qty: 90 1RF buspirone 30 mg tablet 30 mg PO BID Qty: 180 1RF bupropion HCl 300 mg tablet extended release 24 hr 300 mg PO DAILY Qty: 90 1RF multivitamin Tablet 1 tab PO QDAY Hair,Skin and Nails Tablet 1 tab PO QDAY women's wellness 1 cap PO TID Patient Comments: procaps positive passage 1 cap PO QDAY Patient Comments: Procaps ultimate eye support 1 cap PO QDAY Patient Comments: procaps atorvastatin 40 MG tablet 40 mg PO QHS metformin 1,000 MG tablet 1,000 mg PO BIDCM coenzyme Q10 [Co Q-10] 50 mg Capsule 50 mg PO DAILY ascorbic acid (vitamin C) [Vitamin C] 500 mg Tablet 500 mg PO DAILY cinnamon bark [Cinnamon] 500 mg Capsule 500 mg PO DAILY Primary Care Provider: Hugo Tena Referrals: Hugo Tena MD [Primary Care Provider] - Print Language: Sami Disposition Disposition: Acute Care [facility]
[2024-10-02 16:47] LABS: Absolute Lymphocyte Count 0.68 X10^3/uL (0.83-4.51); Absolute Neutrophil Count 3.7 X10^3/uL (2.0-7.7); Basophil# 0.05 X10^3/uL; Basophil% 0.9 % (0-1); Eosinophil# 0.02 X10^3/uL; Eosinophils% 0.4 % (0-5); Hematocrit 41.2 % (37-47); Hemoglobin 13.8 g/dL (12.0-15.0); Lymphocyte # 0.68 X10^3/ul (0.83-4.51); Lymphocyte % 12.8 % (19-41); Mean Corp Hgb Conc 33.5 g/dL (32-36); Mean Corpuscular Hgb 28.9 pg (27.0-32.0); Mean Corpuscular Volume 86.2 fL (81-99); Monocyte# 0.86 X10^3/uL; Monocyte% 16.2 % (0-10); NRBC Flagged by Analyzer 0 % (0-5); Neutrophil # 3.69 X10^3/uL (2.7-7.7); Neutrophil % 69.3 % (47-70); Platelet Count 221 K/mm3 (150-450); RBC Distribution Width CV 12.9 % (11.6-14.6); RBC Distribution Width SD 40.4 fl (35.1-43.9); Red Blood Count 4.78 M/mm3 (4.2-5.4); White Blood Count 5.3 K/mm3 (4.4-11.0)
[2024-10-02] MEDS: 0.9% Normal Saline (1000mL) 1,000 ML 999 ML IV (16:52)
[2024-10-02 17:09] LABS: Anion Gap 11 (5-15); BUN 11 mg/dL (7-18); BUN/Creat Ratio 13.1 RATIO (10-20); Calcium,Total 9.6 mg/dL (8.5-10.1); Chloride 103 mmol/L (98-107); Creatinine, Serum 0.84 mg/dL (0.55-1.02); EST Glomerular Filtration Rate 71 mL/min (>60); Est Glom Filt Rate - Afr Amer 86 mL/min (>60); Estimated Creatinine Clearance 62.88 ml/min; Glucose 216 mg/dL (74-106); Magnesium 1.7 mg/dL (1.6-2.6); Potassium 3.8 mmol/L (3.5-5.1); Sodium Level 136 mmol/L (136-145); Troponin-I HS (w/2H Reflex) 6 pg/mL (3.0-54.0)
--- NOTE | 2024-10-02 17:10 | RAD_ITS ---
EXAM: XR CHEST, 2 VIEWS CLINICAL INDICATION: lightheaded TECHNIQUE: Frontal and lateral views of the chest. COMPARISON: March 28, 2021 chest radiography FINDINGS: LUNGS AND PLEURAL SPACES: Unremarkable. No consolidation or edema. No pneumothorax. No effusion. HEART: Unremarkable. Cardiac silhouette not enlarged. MEDIASTINUM: Central airways and mediastinal contour are unremarkable. BONES/JOINTS: Degenerative changes of the spine and acromioclavicular joints. No acute fracture. SOFT TISSUES: Unremarkable. RAD/Chest PA and Lateral IMPRESSION: No acute disease. Electronically Signed: Guevara Ponce MD at 17:25 EST ,
[2024-10-02 17:51] VITALS: BP 132/60; PULSE 96; RESP 25; O2SAT 97
[2024-10-02 18:42] LABS: Reflex Troponin-HS? (from REC) Y
[2024-10-02 19:00] VITALS: BP 137/74; PULSE 92; RESP 22; O2SAT 99
[2024-10-02 19:06] LABS: Troponin-I HS 6 pg/mL (3.0-54.0)
--- NOTE | 2024-10-02 19:57 | PCM.HP.STD ---
HPI - General General Date of Admission: 10/02/24 Date of Service: 10/02/24 Chief Complaint: Lightheadedness, Near Syncope, Dizziness, Fatigue/malaise HPI Narrative The patient is an 74 y/o F w/ PMHx: Hx CVA, Anxiety and Depression/hoarding behavior, Hypothyroidism, HTN, HLD, Diabetes mellitus type II, Former tobacco use who presents to the [facility] ED on 10/02/2024 with history of lightheadedness, dizziness with near syncopal type sensation noted that she woke in the early a.m. on day of presentation at approximately 330 with general malaise and fatigue up until at least 8 AM when she got up to feed her cat without any issues at that time however in the afternoon approximately 2:30 PM while she was doing scotty she became more fatigued and weak with difficulty focusing eventually walking to the kitchen with onset of dizziness then with no spinning however she did feel as though she was going to pass out causing her to stand and let things pass with eventual improvement however this occurred again eventually prompting her to lower self to the ground so she did not pass out prompt eventual ED evaluation. She notes on day of presentation she had decreased appetite with poor oral intake and hydration and does note recent postnasal drip and congestion but no fevers or chills. In the ED NIH stroke scale was performed and noted to be 0. Workup in the ED included T98.7, heart rate 96, BP 125 or 63, respiratory rate 16, 100% room air with most recent repeat vitals heart rate 92, BP 137/74, respiratory rate 22, 99% on room air, CBC with WC 5.3, hemoglobin 13.8, platelet 221 with lymphopenia, unremarkable BMP aside glucose 216, TSH 2.020, magnesium 1.7, troponin 6 with repeat delta 6, CT of the brain with diffuse involutional changes and chronic ischemic small vessel white matter disease with no acute cardiopulmonary findings, chest x-ray with no acute cardiopulmonary disease, EKG with sinus rhythm with no acute evidence of ischemia. In the ED patient is doing 1 L normal saline and FS ASA. [facility] Medical History (Updated 10/02/24 @ 20:[address] 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 Stroke Polycystic ovaries History of emotional problems Cataracts, bilateral Arthritis Allergies Depression Anxiety Hypertension Hypothyroidism Diabetes mellitus Home Medications ?Medication ?Instructions ?Recorded ?Last Taken ?Type atorvastatin 40 mg tablet 40 mg PO QHS 05/01/17 Unknown History metformin 1,000 mg tablet 1,000 mg PO BIDCM 05/01/17 Unknown History ascorbic acid (vitamin C) 500 mg 500 mg PO DAILY 03/28/21 Unknown History tablet (Vitamin C) cinnamon bark 500 mg capsule 500 mg PO DAILY 03/28/21 Unknown History (Cinnamon) coenzyme Q10 50 mg capsule (Co 50 mg PO DAILY 03/28/21 Unknown History Q-10) semaglutide 1 mg/dose (4 mg/3 mL) 1 mg subcut QWEEK 12/29/22 Unknown History subcutaneous pen injector (Ozempic) bupropion HCl 300 mg 24 hr tablet, 300 mg PO DAILY #90 tabs 03/28/24 Unknown Rx extended release buspirone 30 mg tablet 30 mg PO BID #180 tabs 03/28/24 Unknown Rx fluoxetine 40 mg capsule 40 mg PO DAILY #90 caps 03/28/24 Unknown Rx multivitamin 1 tab PO QDAY 06/26/24 Unknown History multivitamin with minerals 1 tab PO QDAY 06/26/24 Unknown History (Hair,Skin and Nails tablet) positive passage 1 cap PO QDAY 06/26/24 Unknown History ultimate eye support 1 cap PO QDAY 06/26/24 Unknown History women's wellness 1 cap PO TID 06/26/24 Unknown History Allergy/AdvReac Type Severity Reaction Status Date / Time caffeine Allergy Mild Other Verified 10/02/24 15:51 sertraline (From Zoloft) Allergy Mild Other Verified 10/02/24 15:51 azithromycin (From Zithromax) Allergy Shortness Verified 10/02/24 15:51 of breath codeine AdvReac Nausea Verified 10/02/24 15:51 pentazocine lactate (From AdvReac Nausea Verified 10/02/24 15:51 Ajay) Family History (Updated 10/02/24 @ 20:[address] Sarah Benavides MD) Mother CAD (coronary artery disease) Heart disease Hypertension Myocardial infarction Brother CAD (coronary artery disease) Heart disease Hypertension Myocardial infarction Father Hypertension Heart failure Surgical History History of wisdom tooth extraction H/O gastric bypass History of tonsillectomy Social History (Updated 10/02/24 @ 20:[address] Sarah Benavides MD) household members: none Smoking Status: Former smoker how long ago did patient quit smoking: Quit 1983, smoked < 1ppd x 10 years. alcohol intake: current alcohol intake frequency: holidays/special occasions only Alcohol type: wine substance use type: does not use what type of physical activity do you participate in: walking and yoga ROS ROS Narrative Admission Review of Systems: CONSTITUTIONAL: No weight loss, fever, chills, + weakness or fatigue. HEENT: + Congestion, rhinorrhea, postnasal drip. Eyes: No visual loss, blurred vision, double vision or yellow sclerae. Ears, Nose, Throat: No hearing loss. SKIN: No rash or itching, lesions, wounds. CARDIOVASCULAR: + Lightheadedness, dizziness. No chest pain, chest pressure or chest discomfort, palpitations, edema, orthopnea, syncopal events. RESPIRATORY: No shortness of breath, cough or sputum, wheezing, hemoptysis. GASTROINTESTINAL: + Mild anorexia. No nausea, vomiting or diarrhea, abdominal pain, melena, BRBPR. GENITOURINARY: No dysuria, frequency, urgency or retention. NEUROLOGICAL: + Lightheadedness, dizziness, difficulty focusing/concentrating and performing her routine activities. No headache, paralysis, ataxia, numbness or tingling in the extremities, focal weakness, change in bowel or bladder control, seizure. MUSCULOSKELETAL: + muscle, back pain, joint pain or stiffness. HEMATOLOGIC: No anemia, bleeding or bruising. LYMPHATICS: No enlarged nodes. No history of splenectomy. PSYCHIATRIC: + History of anxiety and depression. ENDOCRINOLOGIC: No reports of sweating, cold or heat intolerance. No polyuria or polydipsia. ALLERGIES: No history of asthma, hives, eczema or rhinitis. Vital Signs Vital Signs Vital Signs: 10/02/24 15:51 10/02/24 16:59 10/02/24 17:51 Temperature 98.7 F Temperature Source Oral Pulse Rate 96 96 Respiratory Rate 16 25 H Blood Pressure 125/63 H 132/60 H Blood Pressure Mean 83 84 Pulse Ox 100 97 Oxygen Delivery Method Room Air Room Air Room Air 10/02/24 19:00 Temperature Temperature Source Pulse Rate 92 Respiratory Rate 22 H Blood Pressure 137/74 H Blood Pressure Mean 95 Pulse Ox 99 Oxygen Delivery Method Room Air Weight Weight: 174 lb 2.643 oz Body Mass Index (BMI) 29.0 Physical Exam Narrative Physical Examination: General: Awake, alert, oriented x 3 and cooperative, seated upright in the ED bed, fatigued, denies any current lightheadedness or dizziness. Skin: Normal color, normal turgor, no icterus, no cyanosis. HEENT: AT/NC, EOMI, PERRLA, dry MM, no carotid bruits or JVD noted. Lungs: Mildly diminished, greater bases, mildly increased respiratory rate but no distress, no rales, ronchi or wheezing. Heart: Improved, regular rate and rhythm; no gallop, rub audible. Abdomen: Soft, NTTP, ND, mildly hyperactive BS, no HSM. Extremities: No cyanosis, clubbing, or edema. Neurological: Patient awake, alert, oriented as noted, cognitive function intact; pupils equally reactive to light and accommodation, cranial nerves grossly normal, moving all 4 extremities, no focal deficits, strength preserved but mildly to moderately globally decreased, no current lightheadedness or dizziness, no evidence of any nystagmus. Psychiatric: Affect appears fatigued otherwise normal, no acute evidence of depressive or anxiety feelings but does have underlying history. Results Lab / Micro Data 10/02/24 16:18 10/02/24 16:18 Labs: Laboratory Results - last 24 hr 10/02/24 16:18: WBC 5.3, RBC 4.78, Hgb 13.8, Hct 41.2, MCV 86.2, MCH 28.9, MCHC 33.5, RDW Std Deviation 40.4, RDW Coeff of Calli 12.9, Plt Count 221, MPV 11.0, Immature Gran % (Auto) 0.400, Neut % (Auto) 69.3, Lymph % (Auto) 12.8 L, [place] % (Auto) 16.2 H, Eos % (Auto) 0.4, Baso % (Auto) 0.9, Absolute Neuts (auto) 3.7, Absolute Lymphs (auto) 0.68 L, Nucleated RBC % 0, Sodium 136, Potassium 3.8, Chloride 103, Carbon Dioxide 22.0, Anion Gap 11, BUN 11, Creatinine 0.84, Estim Creat Clear Calc 62.88, Est GFR (MDRD) Af Amer 86, Est GFR (MDRD) Non-Af 71, BUN/Creatinine Ratio 13.1, Glucose 216 H, Calcium 9.6, Magnesium 1.7, Troponin I High Sens 6, TSH 2.020 10/02/24 18:28: Troponin I High Sens 6 Imaging Radiology Impression Brain CT 10/02/24 16:38 IMPRESSION: 1. No evidence of acute intracranial pathology. 2. Diffuse involutional changes and chronic ischemic small vessel white matter disease. AIDOC was utilized to assist in identifying pertinent positive findings. Electronically Signed: Guevara Ponce MD at 17:29 EST , Chest X-Ray 10/02/24 17:10 IMPRESSION: No acute disease. Electronically Signed: Guevara Ponce MD at 17:25 EST , Assessment & Plan Assessment/Plan (1) Near syncope: PLAN: Plan The patient is an 74 y/o F w/ PMHx: Hx CVA, Anxiety and Depression/hoarding behavior, Hypothyroidism, HTN, HLD, Diabetes mellitus type II, Former tobacco use who presents to the [facility] ED on 10/02/2024 with history of lightheadedness, dizziness with near syncopal type sensation noted that she woke in the early a.m. on day of presentation at approximately 330 with general malaise and fatigue up until at least 8 AM when she got up to feed her cat without any issues at that time however in the afternoon approximately 2:30 PM while she was doing scotty she became more fatigued and weak with difficulty focusing eventually walking to the kitchen with onset of dizziness then with no spinning however she did feel as though she was going to pass out causing her to stand and let things pass with eventual improvement however this occurred again eventually prompting her to lower self to the ground so she did not pass out prompt eventual ED evaluation. #1. Near Syncopal Event, Lightheadedness/Dizziness, some concern per ED for possible TIA w/ prior CVA history, lower suspicion but unclear etiology, possibly acute viral syndrome associated: Will admit to PCU, will obtain MRI Brain, CTA Head and Neck, ECHO, PT/OT/Speech/Nutrition evaluation per protocol. Will allow permissive HTN, maintain on asa, statin w/ AM FLP, fall precautions. FLP, HgbA1c requested. Will continue to trend serial cardiac enzymes with PRN EKGs. Will obtain admission orthostatic and AM orthostatic VS if appropriate. Full respiratory viral panel and COVID PCR requested a certainly could be initial symptoms. #2. Hypertension: Given presentation will temporally hold hypertensive regimen with planned orthostatics, stroke assessment to be cautious but lower suspicion, will appear in agents per stroke protocol. #3. Hyperlipidemia: Continue home statin regimen. AM FLP. #4. Anxiety and Depression/hoarding behavior: We will continue patient home fluoxetine and bupropion as well as BuSpar home regimen, hold for any sedation concerns. #5. Hypothyroidism: Noted history, per current list does not appear to be on regimen, TSH 2.02 however, clarifying regimen to be certain. #6. Diabetes mellitus type II: Hold oral home regimen, hemoglobin A1c requested, nutrition consulted per stroke protocol, ADA diet, accu checks w/ ISS. #7. Former tobacco use: Encourage continued tobacco cessation. #8. DVT prophylaxis: Lovenox. #9. CODE status: Patient ROXANNE was her has passed and living vega in place. She notes currently her best friend Pat would be her medical decision-maker if necessary. Discussed CODE status at length including difference between FULL code, DNR-CCA and DNR-CC status. Following discussions about the differences in these status, requested Full Code status. Charges/Coding Visit Charges Inpatient E&M: 76269 Init Hosp L3
[2024-10-02] MEDS: Aspirin 325 MG Tablet PO (20:07)
--- NOTE | 2024-10-02 20:34 | CT_ITS ---
We are attempting to reach an attending provider to discuss findings. An addendum with communication details will be sent when the communication is complete. STUDY: CTA HEAD AND NECK WITH CONTRAST REASON FOR EXAM: Female, 74 years old. ? TIA RADIATION DOSAGE (If Supplied By Facility): CTDIvol = ( 19.80 ) mGy, DLP = ( 727.07 ) mGycm TECHNIQUE: CT angiography was performed with a multi-detector CT scanner. Data acquisition was obtained from the skull base through the vertex following intravenous administration of IV 100mL Isovue-370. MIP images were reconstructed from the axial data set. Post-processing of the angiographic images was performed, with multiplanar reformation and 3D reconstruction. Individualized dose optimization techniques were used for this CT. COMPARISON: No relevant priors. FINDINGS: Normal bilateral petrous carotid arteries. Minor calcific plaquing of the right cavernous carotid with a normal supraclinoid bifurcation. Normal left cavernous carotid artery with a normal supraclinoid bifurcation. Normal right A1 segments of the anterior cerebral artery. Normal left A1 segments of the anterior cerebral artery. Anterior communicating artery not visualized consistent with normal variant Normal bilateral A2 segments of the anterior cerebral arteries. Normal right M1 and M2 segments of the middle cerebral arteries, with a normal M1 bifurcation. Normal left M1 and M2 segments of the middle cerebral arteries, with a normal M1 bifurcation. Posterior communicating arteries are not visualized consistent with normal variant). Normal bilateral vertebral arteries. Normal basilar artery with a normal basilar bifurcation. The visualized bilateral superior cerebellar (SCA) arteries are normal. Normal bilateral P1, P2 and visualized P3 segments of the posterior cerebral arteries. There is no demonstrated aneurysm of the [place]. There is no demonstrated abnormality of the visualized brain. AORTIC ARCH: Normal visualized aortic arch. Normal origins of the brachiocephalic, left common carotid, and left subclavian arteries. RIGHT CAROTID ARTERIES: Normal right common carotid artery (CCA). Normal right common carotid bulb. Normal origin of the right internal carotid (ICA) artery without a hemodynamically significant stenosis. Normal visualized cervical portion of the right internal carotid artery. Normal origin of the right external carotid artery (ECA). LEFT CAROTID ARTERIES: Normal left common carotid artery (CCA). Normal left common carotid bulb. Normal origin of the left internal carotid (ICA) artery without a hemodynamically significant stenosis. Normal visualized cervical portion of the left internal carotid artery. Normal origin of the left external carotid artery (ECA). VERTEBRAL ARTERIES: Normal bilateral vertebral arteries. CT/STROKE CTA Head AND Neck W/Con IMPRESSION: Minor atherosclerotic changes of the head and neck without evidence for hemodynamically significance or major vessel occlusion Electronically Signed: Berto Cardenas MD at 20:51 EST ,
[2024-10-02 21:13] VITALS: BP 120/69; BP 131/89; BP 132/74; PULSE 84; PULSE 89; PULSE 92
--- NOTE | 2024-10-02 21:13 | ECHOD_ITS ---
Reason For Study: TIA/CVA Procedure This was a 2D Doppler, Color Flow transthoracic echocardiogram. Exam performed portable in patient room. The exam was abbreviated due to the COVID 19 protocol. Left Ventricle Normal LV size. The estimated ejection fraction is 70 %. Unable to assess diastolic dysfunction. No regional wall motion abnormalities noted. Right Ventricle Normal right ventricle. Normal systolic function. Atria The left and right atria are normal. No doppler evidence for ASD. Mitral Valve There is severe mitral annular calcification. There is no mitral valve stenosis. Mild (1+) mitral valve insufficiency. Tricuspid Valve There is no tricuspid stenosis. Trivial tricuspid valve insufficiency. Pulmonary artery systolic pressure is 35 mmHg. Aortic Valve Trisinus/trileaflet aortic valve. There is no aortic stenosis. No aortic valve insufficiency. Pulmonic Valve There is no pulmonic valvular stenosis. No pulmonic valve insufficiency. Great Vessels Normal aortic root. Pericardium/Pleural No pericardial effusion. MMode/2D Measurements & Calculations LVIDd: 4.3 cm IVSd: 0.88 cm Ao root diam: 3.2 cm LVIDs: 3.0 cm LVPWd: 0.99 cm FS: 30.2 % LAV(MOD-bp): 34.9 ml LVAd ap4: 20.4 cm2 SV(MOD-sp4): 34.7 ml LAV(MOD-bp) Indexed: 19.0 ml/m2 LVLd ap4: 6.4 cm SI(MOD-sp4): 18.9 ml/m2 LAV(MOD-sp2): 33.6 ml EDV(MOD-sp4): 53.3 ml LAV(MOD-sp4): 29.3 ml EDV(sp4-el): 55.5 ml LVAs ap4: 11.4 cm2 LVLs ap4: 5.6 cm ESV(MOD-sp4): 18.7 ml ESV(sp4-el): 19.6 ml EF(MOD-sp4): 65.0 % EF(sp4-el): 64.8 % SV(sp4-el): 35.9 ml LA A4 area: 12.6 cm2 LA dimension(2D): 3.2 cm RA A4 area: 11.7 cm2 Doppler Measurements & Calculations TR max bhavna: 273.3 cm/sec TR max P.9 mmHg ECHO/Echo Complete Interpretation Summary The estimated ejection fraction is 70 %. Unable to assess diastolic dysfunction. Mild (1+) mitral valve insufficiency. Ordering Physician: Sarah Benavides Referring Physician: LASHELL GALLARDO Performed By: Ursula Freire RDCS
[2024-10-02 21:14] VITALS: BMI 29.0
[2024-10-02 21:20] VITALS: BP 131/59; PULSE 84; RESP 18; TEMP 36.9; O2SAT 100
[2024-10-02] MEDS: 0.9% Normal Saline (1000mL) 1,000 ML 100 ML IV (21:51)
[2024-10-02] MEDS: busPIRone 15 MG TABLET 30 MG PO (21:53)
[2024-10-02] MEDS: Atorvastatin Calcium 40 MG Tablet PO (21:53)
[2024-10-02 23:00] VITALS: O2SAT 98
[2024-10-02 23:09] LABS: Bedside Glucose 130 mg/dL (74-106)
[2024-10-03 00:34] LABS: Troponin-I HS 7 pg/mL (3.0-54.0)
[2024-10-03 03:24] LABS: D-Dimer Quantitative (DVT/PE) 0.33 FEU/ug/m (0.27-0.49)
[2024-10-03 03:26] LABS: Erythrocyte Sedimentation Rate 3 mm/hr (0-30)
[2024-10-03 03:27] LABS: Ferritin 51 ng/mL (8-252); LDH 111 U/L (84-246)
[2024-10-03 03:29] VITALS: BP 118/59; PULSE 86; RESP 18; TEMP 36.9; O2SAT 99
[2024-10-03 03:33] VITALS: BMI 28.9
[2024-10-03 03:37] LABS: BNP,B-Type NATRIURETIC PEPTIDE 98.1 pg/mL (0-100)
[2024-10-03 03:52] LABS: CPK Total, Creatine Kinase 68 U/L (26-192)
[2024-10-03 06:16] LABS: Absolute Neutrophil Count 2.3 X10^3/uL (2.0-7.7); Basophil# 0.05 X10^3/uL; Basophil% 1.1 % (0-1); Eosinophil# 0.01 X10^3/uL; Eosinophils% 0.2 % (0-5); Hematocrit 36.9 % (37-47); Hemoglobin 12.3 g/dL (12.0-15.0); Lymphocyte % 27.8 % (19-41); Mean Corp Hgb Conc 33.3 g/dL (32-36); Mean Corpuscular Hgb 28.9 pg (27.0-32.0); Mean Corpuscular Volume 86.8 fL (81-99); Mean Platelet Vol. 11.2 fl (6.2-12.0); Monocyte# 1.03 X10^3/uL; Monocyte% 22.1 % (0-10); NRBC Flagged by Analyzer 0.6 % (0-5); Neutrophil # 2.26 X10^3/uL (2.7-7.7); Neutrophil % 48.4 % (47-70); Platelet Count 212 K/mm3 (150-450); Red Blood Count 4.25 M/mm3 (4.2-5.4); White Blood Count 4.7 K/mm3 (4.4-11.0)
[2024-10-03 06:35] LABS: Bedside Glucose 132 mg/dL (74-106)
[2024-10-03 06:55] LABS: ALB/GLOB Ratio 1.1 RATIO (0.9-2.4); AST(SGOT) 15 U/L (15-37); Alanine Aminotransfer ALT/SGPT 20 U/L (13-56); Albumin, Serum 2.8 g/dL (3.2-5.0); Alkaline Phosphatase 69 U/L (45-117); Anion Gap 6 (5-15); BUN 9 mg/dL (7-18); BUN/Creat Ratio 14.2 RATIO (10-20); Chloride 108 mmol/L (98-107); Cholesterol 88 mg/dL (200); Creatinine, Serum 0.63 mg/dL (0.55-1.02); EST Glomerular Filtration Rate 98 mL/min (>60); Est Glom Filt Rate - Afr Amer 119 mL/min (>60); Estimated Creatinine Clearance 63.64 ml/min; Globulin 2.6 g/dL (2.2-4.2); Glucose 130 mg/dL (74-106); High Density Lipoprotein 59 mg/dL; Potassium 3.8 mmol/L (3.5-5.1); Protein, Total 5.4 g/dL (6.4-8.2); Sodium Level 138 mmol/L (136-145); Triglycerides 66 mg/dL; Very Low Density Lipoprotein 13 mg/dL (5-40)
[2024-10-03 07:20] VITALS: O2SAT 97
[2024-10-03 08:23] LABS: Hemoglobin A1c 6.7 % (3.8-5.6)
--- NOTE | 2024-10-03 09:00 | MRI_ITS ---
HISTORY: ? TIA. TECHNIQUE: Multiplanar and multisequence MR images of the brain were obtained without contrast. 282 images. COMPARISON: CT prior day. FINDINGS: BRAIN PARENCHYMA: Multiple foci and small zones of increased T2 FLAIR signal in the bilateral cerebral white matter. No abnormal focus of restricted diffusion. No acute intracranial hemorrhage identified. CSF SPACES: Mild volume loss. No significant midline shift or other mass effect.No extra-axial fluid collection. VASCULAR SYSTEM: Major intracranial flow voids are maintained. PARANASAL SINUSES AND MASTOID AIR CELLS: Very mild maxillary sinus mucosal thickening. ORBITS: Symmetric contents. MRI/Brain without Contrast IMPRESSION: No evidence for acute infarct. Chronic involutional and white matter changes. Electronically Signed: Mercedes Alonso MD at 15:00 EST ,
--- NOTE | 2024-10-03 10:13 | NURSING ---
NIH late d/t being at MRI
[2024-10-03 10:50] VITALS: BP 125/41; PULSE 94; RESP 18; TEMP 36.9; O2SAT 98
[2024-10-03] MEDS: Aspirin 81 MG TAB.CHEW PO (10:54)
[2024-10-03] MEDS: buPROPion (XL) 300 MG TABLET.XL PO (10:54)
[2024-10-03] MEDS: Fluoxetine HCl 40 MG CAPSULE PO (10:54)
[2024-10-03] MEDS: busPIRone 15 MG TABLET 30 MG PO (10:55)
[2024-10-03] MEDS: Enoxaparin 40 MG/0.4 ML Syringe SC (10:55)
[2024-10-03 12:36] LABS: Bedside Glucose 146 mg/dL (74-106)
--- NOTE | 2024-10-03 13:26 | SP.MBSS_ITS ---
Modified Barium Swallow Patient Information Study Date: 10/03/24 Study Time: 12:45 Penetration-Aspiration Scale Penetration-Aspiration Scale: OBJECTIVE ASSESSMENT OF SWALLOW FUNCTION (QUANTITATIVE ? PER TRIAL): PENETRATION / ASPIRATION SCALE (VINCENT): 1 = does not enter airway 2 = enters airway/above vocal folds/ejected 3 = enters airway/above vocal folds/not ejected 4 = enters airway/contacts vocal folds/ejected 5 = enters airway/contacts vocal folds/not ejected 6 = enters airway/below vocal folds/ejected 7 = enters airway/below vocal folds/not ejected despite effort 8 = enters airway/below vocal folds/no effort VIDEOFLOROSCOPIC SCALE SCORE (VINCENT): Grade I = aspiration of material that has penetrated into the laryngeal vestibule, intact cough reflex Grade II = aspiration < 10 % of the bolus, intact cough reflex Grade III = aspiration of < 10 % of the bolus, reduced cough reflex or aspiration of > 10 % of the bolus, intact cough reflex Grade IV = aspiration of > 10 % of the bolus, reduced cough reflex Recommendations Diet: Regular Textures and Thin Liquids Compensatory Strategies: Small Bites, Small Sips, Slow Rate, Alternate bites/solids and sips/liquids, Sitting upright and Remain sitting upright for 30 minutes after PO intake Recommended Referrals: GI Consult Education Completed: 1. Described result of evaluation. Status Active ST Patient: Active Contact Information [facility] Speech Therapy:: Stephanie Fleming M.A. [facility]-MACHINE OR MACHINERY MECHANIC? Speech-Language Pathologist?? [facility] [address] [place] [address]? [email or web address]?? [phone]
[2024-10-03 14:40] VITALS: BP 137/70; PULSE 89; RESP 18; TEMP 37; O2SAT 97
--- NOTE | 2024-10-03 15:15 | DCINST_ITS ---
Discharge Instructions Diet Discharge Diet: Low fat / Low cholesterol and 1800 Calorie Control Diet DC O2, CPAP, BIPAP needs Home O2 Discharge instructions: No Dressing / Incision Discharge Activity: Return to Normal Activity Weight Bearing Status: Weight bearing as tolerated Dressing / Incision Call your doctor if you observe: Fever of 101 or Higher, Shortness of breath, Dizziness and Chest pain Follow Up Care Test Results: Test results from this visit will be discussed in further detail at your follow- up appointment, if applicable. Discharge Plan Admission Admit Date/Time: 10/02/24 20:00 Primary Reason for Your Visit: near syncope Attending Provider: Nicky Faith Primary Care Provider: Hugo Tena Consulting Providers: Sarah Benavides Instructions Patient Instructions: ED Near-Fainting, Uncertain Cause Discharge Orders/Prescriptions Prescriptions: New aspirin 81 mg tablet,chewable 81 mg PO DAILY Qty: 30 2RF Continued Ozempic 1 mg/dose (4 mg/3 mL) pen injector 1 mg subcut QWEEK fluoxetine 40 mg capsule 40 mg PO DAILY Qty: 90 1RF buspirone 30 mg tablet 30 mg PO BID Qty: 180 1RF bupropion HCl 300 mg tablet extended release 24 hr 300 mg PO DAILY Qty: 90 1RF multivitamin Tablet 1 tab PO QDAY Hair,Skin and Nails Tablet 1 tab PO QDAY women's wellness 1 cap PO TID Patient Comments: procaps positive passage 1 cap PO QDAY Patient Comments: Procaps ultimate eye support 1 cap PO QDAY Patient Comments: procaps atorvastatin 40 MG tablet 40 mg PO QHS metformin 1,000 MG tablet 1,000 mg PO BIDCM coenzyme Q10 [Co Q-10] 50 mg Capsule 50 mg PO DAILY ascorbic acid (vitamin C) [Vitamin C] 500 mg Tablet 500 mg PO DAILY cinnamon bark [Cinnamon] 500 mg Capsule 500 mg PO DAILY Referrals / Follow Up: Hugo Tena MD [Primary Care Provider] - Within 1 Week Disposition Disposition (needs filled in before D/C Order can be placed): Home, Self Care
--- NOTE | 2024-10-03 15:16 | PCM.DC.SUM ---
Providers Date of Admission: 10/02/24 Date of Discharge: 10/03/24 Primary Care Physician: Dr. Lashell Gallardo MD Reason For Visit: NEAR SYNCOPE LIGHTHEADED DIZZINESS Diagnosis Discharge Diagnosis (1) Near syncope: Status: Acute Code(s): R55 - Syncope and collapse Medications at Discharge Home Medications atorvastatin 40 mg tablet 40 mg PO QHS 05/01/17 metformin 1,000 mg tablet 1,000 mg PO BIDCM 05/01/17 ascorbic acid (vitamin C) 500 mg tablet (Vitamin C) 500 mg PO DAILY 03/28/21 cinnamon bark 500 mg capsule (Cinnamon) 500 mg PO DAILY 03/28/21 coenzyme Q10 50 mg capsule (Co Q-10) 50 mg PO DAILY 03/28/21 semaglutide 1 mg/dose (4 mg/3 mL) subcutaneous pen injector (Ozempic) 1 mg subcut QWEEK 12/29/22 bupropion HCl 300 mg 24 hr tablet, extended release 300 mg PO DAILY #90 tabs 03/28/24 buspirone 30 mg tablet 30 mg PO BID #180 tabs 03/28/24 fluoxetine 40 mg capsule 40 mg PO DAILY #90 caps 03/28/24 multivitamin 1 tab PO QDAY 06/26/24 multivitamin with minerals (Hair,Skin and Nails tablet) 1 tab PO QDAY 06/26/24 positive passage 1 cap PO QDAY 06/26/24 ultimate eye support 1 cap PO QDAY 06/26/24 women's wellness 1 cap PO TID 06/26/24 aspirin 81 mg chewable tablet 81 mg PO DAILY #30 tabs 10/03/24 Hospital Course Operations None Procedures 2-D Echocardiogram Summary of Care Provided Minutes Spent on Discharge: 45 Hospital Course: Patient is a 75-year-old female with past medical history as outlined which includes CVA, depression and anxiety as well as hypertension, hypothyroidism and diabetes melitis. She was admitted by the ED on 10/02/2024 with a complaint of lightheadedness. She woke up around 3:30 AM on the day of admission and felt well. She however could not go back to sleep. 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 In the afternoon she was starting to scotty and started having severe difficulty with this. She did not feel like she was being her normal self. She felt very dizzy and lightheaded. She said her symptoms subsequently improved but then recurred. She was able to lower herself to the ground and did not hit her head or pass out. She therefore came into the ED to be evaluated for this. Labs were unremarkable and CT of the brain showed no acute intracranial pathology. CT of the head and neck also showed no evidence of any hemodynamically significant stenosis. She had MRI of the brain which was negative for any evidence of a stroke. 2D echo showed subsequently showed EF of 70% and unable to assess diastolic dysfunction and also had mild mitral valve insufficiency. Of note she also tested positive for COVID but was on room air and was asymptomatic. She remained stable and was discharged home on 10/03/2024. She was discharged on p.o. aspirin 81 mg daily and to continue her high intensity statin. She is follow-up with her primary care doctor within 1 to 2 weeks. Patient seen and examined. She had no active complaints. Review of systems otherwise negative. Labs and vitals reviewed. Home medication reviewed and reconciled. Physical Exam Const alert, oriented x3 and no apparent distress General Appearance: cooperative and comfortable Orientation / Consciousness: awake Exam Limitations: no limitations HEENT normocephalic, head/scalp atraumatic, hearing grossly normal bilaterally and moist oral mucous membranes Mouth: oral and palatal mucosa normal Eyes PERRL, EOMs intact bilaterally and conjunctivae normal Neck no lymphadenopathy Resp normal respiratory effort, no retractions, no use of accessory muscles and clear to auscultation bilaterally Cardio regular rate, regular rhythm, S1 normal heart sound, S2 normal heart sound and no murmurs GI normal to inspection, nondistended, normoactive bowel sounds, soft to palpation, non-tender and non-distended Extremity normal to inspection, full ROM and no clubbing, cyanosis or edema Skin no rashes or lesions noted Neuro oriented x3, CN's II-XII intact bilaterally, moves all extremities, no focal motor deficits and no sensory deficits noted Sensorium / Orientation: awake Motor Exam: strength 5/5 throughout Psych affect normal Weight / BMI Weight Weight: 168 lb 10.458 oz Body Mass Index (BMI) 28.9 ABG / Lab / Microbiology Data 10/03/24 05:32 10/03/24 05:32 Laboratory: Laboratory Results - last 24 hr 10/02/24 16:18: WBC 5.3, RBC 4.78, Hgb 13.8, Hct 41.2, MCV 86.2, MCH 28.9, MCHC 33.5, RDW Std Deviation 40.4, RDW Coeff of Calli 12.9, Plt Count 221, MPV 11.0, Immature Gran % (Auto) 0.400, Neut % (Auto) 69.3, Lymph % (Auto) 12.8 L, [place] % (Auto) 16.2 H, Eos % (Auto) 0.4, Baso % (Auto) 0.9, Absolute Neuts (auto) 3.7, Absolute Lymphs (auto) 0.68 L, Nucleated RBC % 0, Sodium 136, Potassium 3.8, Chloride 103, Carbon Dioxide 22.0, Anion Gap 11, BUN 11, Creatinine 0.84, Estim Creat Clear Calc 62.88, Est GFR (MDRD) Af Amer 86, Est GFR (MDRD) Non-Af 71, BUN/Creatinine Ratio 13.1, Glucose 216 H, Calcium 9.6, Magnesium 1.7, Troponin I High Sens 6, TSH 2.020 10/02/24 18:28: Troponin I High Sens 6 10/02/24 21:54: POC Glucose 130 H 10/02/24 23:56: Ferritin 51, Lactate Dehydrogenase 111, Total Creatine Kinase 68, Troponin I High Sens 7, C-React Prot Ext Range 11.20 H 10/03/24 02:40: ESR 3, D-Dimer Quant (PE/DVT) 0.33, B-Natriuretic Peptide 98.1 10/03/24 05:32: WBC 4.7, RBC 4.25, Hgb 12.3, Hct 36.9 L, MCV 86.8, MCH 28.9, MCHC 33.3, RDW Std Deviation 41.0, RDW Coeff of Calli 13.0, Plt Count 212, MPV 11.2, Immature Gran % (Auto) 0.400, Neut % (Auto) 48.4, Lymph % (Auto) 27.8, [place] % (Auto) 22.1 H, Eos % (Auto) 0.2, Baso % (Auto) 1.1 H, Absolute Neuts (auto) 2.3, Absolute Lymphs (auto) 1.30, Nucleated RBC % 0.6, Sodium 138, Potassium 3.8, Chloride 108 H, Carbon Dioxide 24.0, Anion Gap 6, BUN 9, Creatinine 0.63, Estim Creat Clear Calc 63.64, Est GFR (MDRD) Af Amer 119, Est GFR (MDRD) Non-Af 98, BUN/Creatinine Ratio 14.2, Glucose 130 H, Hemoglobin A1c 6.7 H, Calcium 9.0, Total Bilirubin 0.40, AST 15, ALT 20, Alkaline Phosphatase 69, Total Protein 5.4 L, Albumin 2.8 L, Globulin 2.6, Albumin/Globulin Ratio 1.1, Triglycerides 66, Cholesterol 88, LDL Cholesterol 16, VLDL Cholesterol 13, HDL Cholesterol 59 10/03/24 06:16: POC Glucose 132 H 10/03/24 11:46: POC Glucose 146 H Microbiology: Microbiology 10/02/24 23:13 Mucosa - Nasopharyngeal Respiratory Panel (PCR) - Final 10/02/24 23:13 Mucosa - Nasopharyngeal Coronavirus COVID-19 PCR - Final SARS-CoV-2 (COVID 19 PCR) Radiography Diagnostic Testing: Radiology Impression Brain CT 10/02/24 16:38 IMPRESSION: 1. No evidence of acute intracranial pathology. 2. Diffuse involutional changes and chronic ischemic small vessel white matter disease. AIDOC was utilized to assist in identifying pertinent positive findings. Electronically Signed: Guevara Ponce MD at 17:29 EST , Chest X-Ray 10/02/24 17:10 IMPRESSION: No acute disease. Electronically Signed: Guevara Ponce MD at 17:25 EST , Head/Neck CTA 10/02/24 20:34 IMPRESSION: Minor atherosclerotic changes of the head and neck without evidence for hemodynamically significance or major vessel occlusion Electronically Signed: Berto Cardenas MD at 20:51 EST , ADDENDUM: 10/02/24 2100 IMPRESSION: Minor atherosclerotic changes of the head and neck without evidence for hemodynamically significance or major vessel occlusion N.B. : The above Results were Read Back by Berto Cardenas MD to Sarah Benavides MD, and understanding confirmed on 10/02/2024 20:54:31 (ET). Electronically Signed: Berto Cardenas MD at 20:51 EST , Echocardiogram 10/02/24 21:13 Interpretation Summary The estimated ejection fraction is 70 %. Unable to assess diastolic dysfunction. Mild (1+) mitral valve insufficiency. Ordering Physician: Sarah Benavides Referring Physician: LASHELL GALLARDO Performed By: Ursula Freire [facility] Brain MRI 10/03/24 09:00 IMPRESSION: No evidence for acute infarct. Chronic involutional and white matter changes. Electronically Signed: Mercedes Alonso MD at 15:00 EST , D/C Instructions Discharge Diet: Low fat / Low cholesterol and 1800 Calorie Control Diet Discharge Activity: Return to Normal Activity Weight Bearing Status: Weight bearing as tolerated Call your doctor if you observe: Fever of 101 or Higher, Shortness of breath, Dizziness and Chest pain DC O2, CPAP, BIPAP Needs Home O2 Discharge instructions: No Meaningful Use Info Meaningful Use Meaningful Use Diagnoses (Choose all that apply): None applicable Ischemic Stroke Statin Dosing Therapy Reference: STATIN DOSE THERAPY REFERENCE: * Patients > 75 years receive moderate or high dose statin therapy. * Patients 75 years or YOUNGER should receive HIGH intensity statin dose unless contraindicated. You will be required to document reason for non-treatment if statin daily dose does not meet guidelines. HIGH DOSE STATIN THERAPY DAILY Atorvastatin > than or = to 40 mg Rosuvastatin > than or = to 20 mg Amlodipine + Atorvastatin > than or = to 2.5/40 mg Ezetimibe + Simvastatin 10/80 mg Simvastatin 80mg Discharge Plan Admission Admit Date/Time: 10/02/24 20:00 Primary Reason for Your Visit: near syncope Attending Provider: Nicky Faith Primary Care Provider: Lashell Gallardo Consulting Providers: Sarah Benavides Instructions Patient Instructions: ED Near-Fainting, Uncertain Cause Discharge Orders/Prescriptions Prescriptions: New aspirin 81 mg tablet,chewable 81 mg PO DAILY Qty: 30 2RF Continued Ozempic 1 mg/dose (4 mg/3 mL) pen injector 1 mg subcut QWEEK fluoxetine 40 mg capsule 40 mg PO DAILY Qty: 90 1RF buspirone 30 mg tablet 30 mg PO BID Qty: 180 1RF bupropion HCl 300 mg tablet extended release 24 hr 300 mg PO DAILY Qty: 90 1RF multivitamin Tablet 1 tab PO QDAY Hair,Skin and Nails Tablet 1 tab PO QDAY women's wellness 1 cap PO TID Patient Comments: procaps positive passage 1 cap PO QDAY Patient Comments: Procaps ultimate eye support 1 cap PO QDAY Patient Comments: procaps atorvastatin 40 MG tablet 40 mg PO QHS metformin 1,000 MG tablet 1,000 mg PO BIDCM coenzyme Q10 [Co Q-10] 50 mg Capsule 50 mg PO DAILY ascorbic acid (vitamin C) [Vitamin C] 500 mg Tablet 500 mg PO DAILY cinnamon bark [Cinnamon] 500 mg Capsule 500 mg PO DAILY Referrals / Follow Up: Lashell Gallardo MD [Primary Care Provider] - Within 1 Week Disposition Disposition (needs filled in before D/C Order can be placed): Home, Self Care Charges/Coding Visit Charges Inpatient E&M: 14279 Disch Hosp >30min
--- NOTE | 2024-10-03 15:31 | CASEMGMT ---
Patient has order for discharge. Patient independent in room and with therapy. RN CM in to discuss needs at discharge. Patient denies needs or help at discharge. Patient had no further questions or concerns.
[2024-10-03 15:37] VITALS: BMI 28.9
== END 2024-10-03 15:15 | disposition home or self-care (01) ==
LOC: ED 20:00 → PCU 20:28
PROVIDERS: Admitting Provider Family Medicine; Emergency Provider Emergency Medicine; PCP Family Medicine; Visit Provider Student in an Organized Health Care Education/Training Program
DX: R55 Syncope and collapse (principal); E11.9 Type 2 diabetes mellitus without complications; U07.1 COVID-19; E78.5 Hyperlipidemia, unspecified; Z79.84 Long term (current) use of oral hypoglycemic drugs; Z87.891 Personal history of nicotine dependence; I10 Essential (primary) hypertension; R42 Dizziness and giddiness; Z86.73 Personal history of transient ischemic attack (TIA), and cerebral infarction without residual deficits; R53.81 Other malaise; F41.9 Anxiety disorder, unspecified; F32.4 Major depressive disorder, single episode, in partial remission; F42.3 Hoarding disorder; Z79.899 Other long term (current) drug therapy; Z98.84 Bariatric surgery status
CPT/HCPCS: 36415; 70450; 70496; 70498; 70551; 71046; 80048; 80053; 80061; 82550; 82728; 82962; 83036; 83615; 83735; 83880; 84443; 84484; 85025; 85379; 85652; 86140; 87633; 87635; 93005; 93306; 94668; 94762; 96360; 96361; 96372; 97161; 97166; 97802; 99221; 99285; Q9967; G0378

== ENCOUNTER → 2025-05-24 | Outpatient (CLI) | payer MEDICARE, SELFPAY ==
[2025-05-24 12:05] LABS: Mucous, Urine 0 SEEN /hpf (<or=2+)
[2025-05-24 15:27] LABS: Hematocrit 45.9 % (37-47); Hemoglobin 15.0 g/dL (12.0-15.0); Immature Granulocytes Count 0.020 X10^3/uL (0.0-0.0); Mean Corp Hgb Conc 32.7 g/dL (32-36); Mean Corpuscular Volume 86.3 fL (81-99); Mean Platelet Vol. 11.1 fl (6.2-12.0); NRBC Flagged by Analyzer 0 % (0-5); Platelet Count 312 K/mm3 (150-450); RBC Distribution Width CV 13.0 % (11.6-14.6); RBC Distribution Width SD 40.3 fl (35.1-43.9); Red Blood Count 5.32 M/mm3 (4.2-5.4); White Blood Count 7.0 K/mm3 (4.4-11.0)
[2025-05-24 16:15] LABS: AST(SGOT) 17 U/L (<=31); Alanine Aminotransfer ALT/SGPT 11 U/L (<=34); Albumin, Serum 4.3 g/dL (3.4-4.8); Alkaline Phosphatase 88 U/L (35-104); Anion Gap 14 (5-15); BUN 17 mg/dL (4-19); BUN/Creat Ratio 22.5 RATIO (10-20); Calcium,Total 11.0 mg/dL (7.6-11.0); Carbon Dioxide 21.3 mmol/L (21.0-32.0); Chloride 103 mmol/L (98-108); Cholesterol 195 mg/dL (<=200); Globulin 2.5 g/dL (2.2-4.2); Glucose 109 mg/dL (70-99); Low Density Lipoprotein Calc. 93 mg/dL; Potassium 4.5 mmol/L (3.3-5.1); Triglycerides 148 mg/dL; Uric Acid 5.1 mg/dL (2.6-6.0); Very Low Density Lipoprotein 30 mg/dL (5-40); cholesterol:hdl ratio screen 2.70
[2025-05-24 18:12] LABS: Color, Urine Yellow (Yellow); Glucose, Dipstick Normal (Normal); Ketone-Dipstick 5 mg/dl (Negative); Leukocyte Esterase-Dipstick 100 /ul (Negative); Nitrite-Dipstick Positive (Negative); Occult Blood-Urine Negative /ul (Negative); Protein-Dipstick 30 mg/dl (Negative); Specific Gravity, Urine 1.020 (1.002-1.030); Urine Bilirubin Dipstick Negative (Negative)
[2025-05-24 20:32] LABS: Transitional Epithelial - Ur 0-5 SEEN /hpf (0-5)
[2025-05-24 20:33] LABS: Red Blood Cells-Urine 0-5 SEEN /hpf (0-5); Squamous Epithelial Cells - UA 0-5 SEEN /hpf (5-10)
[2025-05-24 21:02] LABS: PTHIN 86 pg/mL (11-61)
[2025-05-24 22:04] LABS: Creatinine, Urine (random) 225.00 mg/dL (28.00-217.00); Microalbumin,Random Urine 23.0 mg/L (<20 mg/L)
== END | disposition home or self-care (01) ==
LOC: MFPLAB 12:02
PROVIDERS: PCP Family Medicine; Referring Provider Family Medicine; Visit Provider Family Medicine
DX: E11.8 Type 2 diabetes mellitus with unspecified complications (principal); M10.9 Gout, unspecified; R79.89 Other specified abnormal findings of blood chemistry
CPT/HCPCS: 80053; 80061; 81001; 82043; 82570; 83036; 83970; 84550; 85025